=== PATIENT | male | born 2000 | race Caucasian/White ===

== ENCOUNTER 2025-01-31 20:40 | Emergency (ER) | payer OTHER, SELFPAY ==
--- NOTE | ~2025-01-31 | XR_ITS ---
CHEST RADIOGRAPH, PA AND LATERAL CLINICAL HISTORY: CP/SHOB . COMPARISON: None available TECHNIQUE: PA and lateral views of the chest. FINDINGS The cardiomediastinal silhouette is unremarkable. The lungs are clear. IMPRESSION: No focal infiltrate or effusion. Reviewed, dictated and finalized at location A.
--- NOTE | 2025-01-31 20:42 | ECG_ITS ---
Test Date: 2025-01-31 20:51:36 Measurements Intervals [place] Rate: 52 P: 38 MO: 111 QRS: 66 QRSD: 110 T: 61 QT: 417 QTc: 390 Interpretive Statements SINUS BRADYCARDIA WITH SHORT MO INTERVAL BASELINE ARTIFACT- I, II, III, AVR, AVL, AVF BORDERLINE ECG No previous ECG available for comparison Electronically Signed On 02-01-2025 06:14:20 CDT by Alfred Castanon D.O.
--- OUTSIDE RECORDS SUMMARY | 2025-01-31 20:42 | XMS_ITS ---
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 Name Role Phone Syed Mcclelland MD Primary Care Provider Unavailab Leona Maldonado Unavailable [phone] Son Handley Unavailable [phone] REASON FOR VISIT 1 month f/u Medications Medication SIG (Take, Route, Frequency, Duration) Notes Start Date End Date Status Citalopram Hydrobromide 10 MG 1 tablet Oral daily; Duration: 30 days 10/31/2024 Active Social History Sex Assigned At : Social History Observation Description Sex Assigned At Male Vital Signs Blood pressure systolic 108 mm Hg 11/17/19 25 Blood pressure diastolic 67 mm Hg 025 Heart Rate 54 /min 11/16/2024 Height 71 in 11/16/2024 Weight 139.8 lbs 11/16/2024 BMI 19.5 kg/m2 11/16/2024 Height-cm 180.34 cm 11/16/2024 Weight-kg 63.41 kg 11/16/2024 Encounters Encounter Location Date Provider Diagnosis [facility] [employer] [place] [address] [address] 11/16/2024 Son Handley Plan Of Treatment No Information Progress Notes * PHILLYGABRIELDOB:[birth year] (24 yo M)Acc No.[id number]:11/16/2024 Transfer of Care from [facility] Patient: GABRIEL TIRADO Provider: DINAH BHAGAT :2000 A ge:24 Y S ex:Male Date:11/16/2024 Phone: Address:[address] [place] [id number] Pcp:Syed Mcclelland MD Subjective: * Chief Complaints: * 1 . 1 month f/u. * HPI: D epression screening: PHQ-9 L ittle interest or pleasure in doing things?Several days F eeling down, depressed, or hopeless S ever T rouble falling or staying asleep, or sleeping too much S ever F eeling tired or having little energy S ever P oor appetite or overeating N ot at all F eeling bad about yourself or that you are a failure, or have let yourself or your family down S ever T rouble concentrating on things, such as reading the newspaper or watching television N ot at all M oving or speaking so slowly that other people could have noticed; or the opposite, being so fidgety or restless that you have been moving around a lot more than usual N ot at all T houghts that you would be better off or of hurting yourself in some way N ot at all I nterpretation M ild Depression D epression Screening: DAREN-7 (2018 Edition) F eeling nervous, anxious, or on edge S ever N ot being able to stop or control worrying?Several days W orrying too much about different things S ever T rouble relaxing S ever B eing so restless that it is hard to sit still N ot at all B ecoming easily annoyed or irritable S ever F eeling afraid as if something awful might happen S ever I f you checked any problems, how difficult have they made it for you to do your work, take care of things at home, or get along with other people? S omewhat difficult I nterpretation of Total ( 5 to 9) Mild * Medical History: * Medications: T jarrettg Citalopram Hydrobromide 10 MG Tablet 1 tablet Oral daily Objective: * Vitals: B P:108/67mm Hg, HR:54/min, Wt:139.8lbs, Wt-k.41 kg, Ht:71in, Ht-cm: 180.34 cm, BMI:19.5Index, Body Surface Area: 1.78. Assessment: Plan: * Treatment: * Billing Information: * Visit Code: * Procedure Codes: * Electronic signature of Oliver DINAH Rodriguez on 01/31/2025 at 07:05 PM CDT Sign off status: Pending * Provider: DINAH BHAGAT Date: 0 11/16/2024 Generated for Printi ng/Faxing/eTransmitting on: 0 01/31/2025 07:05 PM CDT History and Physical Notes * HPI (History of Present Illness) Category Sub-Category Detail Notes Category Not es Depression screening PHQ-9 Little inte rest or pleasure in doing things: Several days Feeling down, depressed, or hopeless: Se veral days Trouble falling or staying asleep, or sl eeping too much: Several days Feeling tired or having little energy: S everal days Poor appetite or overeating: Not at all Feeling bad about yourself o r that you are a failure, or have let yourself or your family down: Several days Trouble concentrating on thi ngs, such as reading the newspaper or watching television: Not at all Moving or speaking so slowly that other people could have noticed; or the opposite, being so fidgety or restless that you have been moving around a lot more than usual: Not at all Thoughts that you would be b rakesh off or of hurting yourself in some way: Not at all Interpretation: Mild Depression Depression Screening DAREN-7 (2018 Edition) Feelin g nervous, anxious, or on edge: Several days Not being able to stop or control worryi ng: Several days Worrying too much about different things : Several days Trouble relaxing: Several days Being so restless that it is hard to sit still: Not at all Becoming easily annoyed or irritable: Se veral days Feeling afraid as if something awful fady ht happen: Several days If you checked any problems, how difficult have they made it for you to do your work, take care of things at home, or get along with other people?: Somewhat difficult Interpretation of Total: (5 to 9) Mild
--- OUTSIDE RECORDS SUMMARY | 2025-01-31 20:42 | XMS_ITS | Patient Health Record ---
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 Name Role Phone Syed Mcclelland MD Primary Care Provider Unavailab Leona Maldonado Unavailable [phone] Son Handley Unavailable [phone] Justine Barnard Unavailable [phone] Vlad Gutierrez Unavailable [phone] Allergies Allergen (clinical drug ingredient) Drug/Non Drug Allergy documented on EMR Reaction Allergy Type Onset Date Status Cetirizine HCl Unknown Drug Allergy Ac tive montelukast Montelukast Sodium Unknown Drug Allergy Active Reason For Referral No Information Medications Medication SIG (Take, Route, Frequency, Duration) Notes Start Date End Date Status Citalopram Hydrobromide 10 MG 1 tablet Oral daily; Duration: 30 days 10/31/2024 Active Social History Tobacco Use: Social History Observation Description Date Details (start date - stop date) Never Smoker NA - NA Sex Assigned At : Social History Observation Description Sex Assigned At Male Tobacco Control (Standard) Question Answer Notes Tobacco use: Nonsmoker AUDIT-C (Standard) Question Answer Notes Did you have a drink contain ing alcohol in the past year? Yes How often did you have six o r more drinks on one occasion in the past year? Declined to specify (0 point) How many drinks did you have on a typical day when you were drinking in the past year? Declined to specify (0 point) How often did you have a dri nk containing alcohol in the past year? Never (0 point) Problems Problem Type SNOMED Code ICD Code Onset Dates Problem Status W/U Status Risk Notes Problem Severe recurrent major depression without psychotic features (04466382) Major depressive disorder, recurrent severe without psychotic features (F33.2) Active confirmed Problem Generalized anxiety disorder (74213351) Generalized anxiety disorder (F41.1) Active confirmed Problem Attention deficit hyperactivity disorder (041209919) Attention-deficit hyperactivity disorder, unspecified type (F90.9) Active confirmed Problem Depression Screening (100281934) Encounter for screening for depression (Z13.31) Active confirmed Problem Moderate recurrent major depression (39562501) MDD (major depressive disorder), recurrent episode, moderate (F33.1) Active confirmed Problem History of psychiatric disorder (565722707) History of ADHD (Z86.59) Active confirmed Vital Signs Heart Rate 49 /min 10/31/2024 Blood pressure diastolic 70 mm Hg 10/31/2024 Weight-kg 64.68 kg 10/31/2024 Blood pressure systolic 109 mm Hg 10/31/2024 Weight 142.6 lbs 10/31/2024 Encounters Encounter Location Date Provider Diagnosis [employer], [address] [place] [address] 06/11/2024 Justine Hinderliter Major depressive disorder, recurrent severe without psychotic features F33.2 ; Generalized anxiety disorder F41.1 and Attention-deficit hyperactivity disorder, unspecified type F90.9 [employer], [address] [place] [address] 06/26/2024 Justine Hinderliter Major depressive disorder, recurrent severe without psychotic features F33.2 ; Generalized anxiety disorder F41.1 and Attention-deficit hyperactivity disorder, unspecified type F90.9 [employer], [address] [place] [address] 07/03/2024 Justine Hinderliter Major depressive disorder, recurrent severe without psychotic features F33.2 ; Generalized anxiety disorder F41.1 and Attention-deficit hyperactivity disorder, unspecified type F90.9 [employer], [place] [address] [place] [address] 07/17/2024 Justine Hinderliter [employer], [address] [place] [address] 07/30/2024 Justine Hinderliter Major depressive disorder, recurrent severe without psychotic features F33.2 ; Generalized anxiety disorder F41.1 and Attention-deficit hyperactivity disorder, unspecified type F90.9 [employer], [place] [address] [facility] [address] [place] [address] 08/06/2024 Justine Barnard [facility], [address] [address] [place] [address] 10/31/2024 Vlad Clubb MDD (major depressiv e disorder), recurrent episode, moderate F33.1 ; History of ADHD Z86.59 ; Encounter for screening for depression Z13.31 and Encounter for screening for cardiovascular disorders Z13.6 [facility] [address] [facility] [address] [place] [address] 01/22/2025 Leona Harper [facility] [address] [address] 06/21/2024 Justine Barnard [facility] [address] [address] 07/23/2024 Justine Barnard [facility] [address] [facility] [address] [address] 10/25/2024 Justine Barnard Assessments Encounter Date Diagnosis (ICD Code) Assessment Notes Treatment Notes Treatment Clinical Notes Section Notes 06/11/2024 Major depressive disorder, recurrent severe without psychotic features (ICD-10 - F33.2) Marital Status: Single Living Arrangement: lives with mom Children: 0 Support System: Mom, off and on with sister Highest Level of Education: Some college 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 Suicidal Ideation/Self Harm: passive suicidal thoughts. Homicidal Ideation: Denied Access to means (firearms etc): yes, locked away in a gun safe. Chief Complaint: This past year has made me want to make therapy a life time thing. Anxiety: Paranoid thoughts, feeling on edge around children due to accusations. One panic attack in September, none since then. Depression: History of depression. Falling out with best friend, current smear campaign. Another friend in a car accident. Isolation, lost friends. Was drinking to cope. Anger: Denied ADHD: Diagnosed previously. Reports hyperfixations Psychosis: Denied Sleep: It's always been not great. Trouble falling asleep. Noted that he can lay in bed until 4am, sometimes all night. Will be laying in bed for multiple hours. Average of 6 hours of sleep. Does not feel well rested after. Appetite: I tend to under eat Does not feel it is related to current concerns, normal for him. Reports what he is eating is healthy. Trauma: Currently being harassed and slandered at school Substance Use (type, last use, amount, frequency, withdrawal symptoms): alcohol 3-4 drinks daily, currently none. Marijuana a couple times, never got anything from it. Gambling/Other Addictive Behaviors: Noted some addiction to porn. ADLs (Hygiene, Chores, Cooking, Shopping): Reported low motivation for anything. Hygiene hasn't been bad but lower than his normal. 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 Adjustment Disorder with Mixed Anxiety and Depressed Mood - The patient has reported significant stress, anxiety, and depression due to a series of distressing events. - Plan: Begin weekly Cognitive Behavioral Therapy (CBT) sessions to tackle stress, anxiety, and depression. Emphasize the development of coping skills, emotional regulation, and cognitive restructuring techniques. 2. Sleep Disturbance - The patient experiences difficulty with sleep initiation, maintenance, and feels unrested. - Plan: Evaluate sleep hygiene and introduce strategies aimed at enhancing sleep quality, including relaxation techniques and a consistent sleep schedule. 3. Social Isolation and Lack of Support System - The patient feels isolated due to loss of friends and support amidst school-related issues and is contemplating a school transfer. - Plan: Investigate avenues for cultivating healthier social supports and connections. Discuss the advantages and disadvantages of transferring schools and its potential effects on mental health. 4. ADHD - The patient has been diagnosed with ADHD. - Plan: Observe how ADHD affects the patient's daily life and mental health. Consider discussing medication management options with a psychiatrist if deemed necessary. 5. Substance Use - The patient has a history of using alcohol to cope with stress and occasional marijuana use, though has ceased such use. - Plan: Keep an eye on substance use patterns and offer psychoeducation about the effects of substances on mental health. Promote the adoption of healthier coping mechanisms. 6. Poor Hygiene and Motivation - The patient has noted a recent improvement in motivation and hygiene, despite an overall decline. - Plan: Incorporate motivation and hygiene improvement strategies into the treatment plan, focusing on goal-setting, establishing daily routines, and enhancing self-care practices. 7. Grief and Loss - The patient is grieving the loss of a close friend in a car accident. - Plan: Offer grief counseling and support to assist the patient in processing and coping with the loss. 8. Mild Issues with Appetite and Eating Habits - The patient occasionally under-eats but perceives it as normal behavior. - Plan: Keep track of eating patterns and discuss the significance of proper nutrition for mental and physical well-being. Encourage the establishment of a regular eating schedule. 9. Concerns with Pornography Use - The patient views pornography use as a potential addictive behavior. - Plan: Evaluate the effects of pornography use on the patient's daily life and interpersonal relationships. Provide psychoeducation on maintaining healthy sexual behaviors and strategies for managing urges. 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 Suicidal Ideation/Self Harm: passive suicidal thoughts. Homicidal Ideation: Denied Access to means (firearms etc): yes, locked away in a gun safe. Chief Complaint: This past year has made me want to make therapy a life time thing. Anxiety: Paranoid thoughts, feeling on edge around children due to accusations. One panic attack in September, none since then. Depression: History of depression. Falling out with best friend, current smear campaign. Another friend in a car accident. Isolation, lost friends. Was drinking to cope. Anger: Denied ADHD: Diagnosed previously. Reports hyperfixations Psychosis: Denied Sleep: It's always been not great. Trouble falling asleep. Noted that he can lay in bed until 4am, sometimes all night. Will be laying in bed for multiple hours. Average of 6 hours of sleep. Does not feel well rested after. Appetite: I tend to under eat Does not feel it is related to current concerns, normal for him. Reports what he is eating is healthy. Trauma: Currently being harassed and slandered at school Substance Use (type, last use, amount, frequency, withdrawal symptoms): alcohol 3-4 drinks daily, currently none. Marijuana a couple times, never got anything from it. Gambling/Other Addictive Behaviors: Noted some addiction to porn. ADLs (Hygiene, Chores, Cooking, Shopping): Reported low motivation for anything. Hygiene hasn't been bad but lower than his normal. 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 Adjustment Disorder with Mixed Anxiety and Depressed Mood - The patient has reported significant stress, anxiety, and depression due to a series of distressing events. - Plan: Begin weekly Cognitive Behavioral Therapy (CBT) sessions to tackle stress, anxiety, and depression. Emphasize the development of coping skills, emotional regulation, and cognitive restructuring techniques. 2. Sleep Disturbance - The patient experiences difficulty with sleep initiation, maintenance, and feels unrested. - Plan: Evaluate sleep hygiene and introduce strategies aimed at enhancing sleep quality, including relaxation techniques and a consistent sleep schedule. 3. Social Isolation and Lack of Support System - The patient feels isolated due to loss of friends and support amidst school-related issues and is contemplating a school transfer. - Plan: Investigate avenues for cultivating healthier social supports and connections. Discuss the advantages and disadvantages of transferring schools and its potential effects on mental health. 4. ADHD - The patient has been diagnosed with ADHD. - Plan: Observe how ADHD affects the patient's daily life and mental health. Consider discussing medication management options with a psychiatrist if deemed necessary. 5. Substance Use - The patient has a history of using alcohol to cope with stress and occasional marijuana use, though has ceased such use. - Plan: Keep an eye on substance use patterns and offer psychoeducation about the effects of substances on mental health. Promote the adoption of healthier coping mechanisms. 6. Poor Hygiene and Motivation - The patient has noted a recent improvement in motivation and hygiene, despite an overall decline. - Plan: Incorporate motivation and hygiene improvement strategies into the treatment plan, focusing on goal-setting, establishing daily routines, and enhancing self-care practices. 7. Grief and Loss - The patient is grieving the loss of a close friend in a car accident. - Plan: Offer grief counseling and support to assist the patient in processing and coping with the loss. 8. Mild Issues with Appetite and Eating Habits - The patient occasionally under-eats but perceives it as normal behavior. - Plan: Keep track of eating patterns and discuss the significance of proper nutrition for mental and physical well-being. Encourage the establishment of a regular eating schedule. 9. Concerns with Pornography Use - The patient views pornography use as a potential addictive behavior. - Plan: Evaluate the effects of pornography use on the patient's daily life and interpersonal relationships. Provide psychoeducation on maintaining healthy sexual behaviors and strategies for managing urges. 06/26/2024 Major depressive disorder, recurrent severe without psychotic features (ICD-10 - F33.2) 1. Family Conflict and Tension with Father - Continue setting boundaries and seeking space from the father as needed to alleviate ongoing tension and conflict, which impacts mental well-being. - Explore coping strategies for managing family conflict, including journaling, mindfulness exercises, and seeking support from friends or other family members. - Consider the potential benefits of family therapy to address the conflict with the father. 2. Strained Relationship with Siblings - Encourage maintaining open communication with siblings and seeking opportunities to strengthen these relationships. - Provide support and guidance in navigating difficult conversations with siblings, especially considering the weakened relationship and similarities to the father's traits. 3. School-related Stress and Decision-making - Support the patient in researching and exploring options for transferring schools, considering the conflict with the father over educational decisions. - Assist in developing a plan for discussing educational decisions with the father, emphasizing clear communication and boundary setting. - Recommend seeking academic advising or career counseling services to aid in decision-making and planning. 4. Coping with Stress and Anxiety - Teach stress management techniques, such as deep breathing exercises, progressive muscle relaxation, and mindfulness meditation, to focus on personal well-being. - Encourage engagement in self-care activities and prioritization of mental health. - Provide a list of support groups as a resource for connecting with individuals facing similar challenges. Follow-up: - Schedule a follow-up appointment for one week from the current date to monitor progress and continue addressing the identified issues. 06/26/2024 Generalized anxiety disorder (ICD-10 - F41.1) 1. Family Conflict and Tension with Father - Continue setting boundaries and seeking space from the father as needed to alleviate ongoing tension and conflict, which impacts mental well-being. - Explore coping strategies for managing family conflict, including journaling, mindfulness exercises, and seeking support from friends or other family members. - Consider the potential benefits of family therapy to address the conflict with the father. 2. Strained Relationship with Siblings - Encourage maintaining open communication with siblings and seeking opportunities to strengthen these relationships. - Provide support and guidance in navigating difficult conversations with siblings, especially considering the weakened relationship and similarities to the father's traits. 3. School-related Stress and Decision-making - Support the patient in researching and exploring options for transferring schools, considering the conflict with the father over educational decisions. - Assist in developing a plan for discussing educational decisions with the father, emphasizing clear communication and boundary setting. - Recommend seeking academic advising or career counseling services to aid in decision-making and planning. 4. Coping with Stress and Anxiety - Teach stress management techniques, such as deep breathing exercises, progressive muscle relaxation, and mindfulness meditation, to focus on personal well-being. - Encourage engagement in self-care activities and prioritization of mental health. - Provide a list of support groups as a resource for connecting with individuals facing similar challenges. Follow-up: - Schedule a follow-up appointment for one week from the current date to monitor progress and continue addressing the identified issues. 07/30/2024 Major depressive disorder, recurrent severe without psychotic features (ICD-10 - F33.2) Assessment and Plan: Family Conflict and Communication Issues with Father Continue exploring and processing the patient's feelings and experiences related to their father's behavior and communication patterns. Develop strategies for effective communication with the father, focusing on setting boundaries and expressing needs assertively. Encourage the patient to seek support from other family members, such as their mother, to validate their feelings and experiences. History of Trauma and Coping with Past Experiences Continue processing the patient's past experiences at school and their impact on his mental health. Reinforce the patient's progress in recognizing and overcoming trauma responses. Encourage the patient to focus on his own needs and goals, such as attending the [facility], rather than seeking validation from their father. Emotional Regulation and Self-Esteem Work on building the patient's self-esteem and resilience in the face of their father's criticism and negative behavior. Develop coping strategies for managing emotions, particularly anger and frustration, in response to their father's actions. Encourage the patient to practice self-compassion and self-care, focusing on his own well-being and personal growth. Scheduling and Follow-up Schedule a follow-up appointment for August 06, in the afternoon via telehealth. Continue to monitor the patient's progress and adjust the treatment plan as needed. 07/30/2024 Generalized anxiety disorder (ICD-10 - F41.1) Assessment and Plan: Family Conflict and Communication Issues with Father Continue exploring and processing the patient's feelings and experiences related to their father's behavior and communication patterns. Develop strategies for effective communication with the father, focusing on setting boundaries and expressing needs assertively. Encourage the patient to seek support from other family members, such as their mother, to validate their feelings and experiences. History of Trauma and Coping with Past Experiences Continue processing the patient's past experiences at school and their impact on his mental health. Reinforce the patient's progress in recognizing and overcoming trauma responses. Encourage the patient to focus on his own needs and goals, such as attending the [facility], rather than seeking validation from their father. Emotional Regulation and Self-Esteem Work on building the patient's self-esteem and resilience in the face of their father's criticism and negative behavior. Develop coping strategies for managing emotions, particularly anger and frustration, in response to their father's actions. Encourage the patient to practice self-compassion and self-care, focusing on his own well-being and personal growth. Scheduling and Follow-up Schedule a follow-up appointment for August 06, in the afternoon via telehealth. Continue to monitor the patient's progress and adjust the treatment plan as needed. 07/03/2024 Major depressive disorder, recurrent severe without psychotic features (ICD-10 - F33.2) 1. Sleep Schedule Improvement - Continue efforts to maintain and enhance the sleep schedule to bolster overall well-being. 2. Exercise and Physical Activity - Gradually reintroduce indoor exercises such as push-ups, sit-ups, and cross-country exercises. - Establish exercise goals for specific days and durations. - Plan to resume running as weather conditions allow. 3. Screen Time and Social Media Reduction - Implement limits on social media use, including andres deletions if necessary. - Allocate 1-2 hours for reading in the afternoon, around 2-3 PM, using timers to manage this activity. 4. Employment - Persist in the job search with the objective of securing employment by the the . - Explore opportunities at the [employer] or other local establishments. 5. Emotional Well-being and Paranoia - Maintain distance from the situation at [facility], concentrating on personal development. - Focus on establishing new, trustworthy relationships, paying attention to positive indicators in individuals. 6. Support System - Make use of the provided list of local support groups. - Participate in hobbies and activities that facilitate meeting new people and creating a support network. 7. Creativity and Personal Fulfillment - Allocate time for creative activities, such as engaging in music and film. - Acknowledge the beneficial effects of creativity on mental and emotional health. 8. Future Appointments - Arrange a follow-up consultation for two weeks, on the , choosing between in-person or telehealth based on preference and availability. The patient is encouraged to persist in focusing on self-care, personal advancement, and cultivating a support network. It is important for the patient to maintain transparent communication with the therapist and to report any concerns or issues prior to the next scheduled meeting. 07/03/2024 Generalized anxiety disorder (ICD-10 - F41.1) 1. Sleep Schedule Improvement - Continue efforts to maintain and enhance the sleep schedule to bolster overall well-being. 2. Exercise and Physical Activity - Gradually reintroduce indoor exercises such as push-ups, sit-ups, and cross-country exercises. - Establish exercise goals for specific days and durations. - Plan to resume running as weather conditions allow. 3. Screen Time and Social Media Reduction - Implement limits on social media use, including andres deletions if necessary. - Allocate 1-2 hours for reading in the afternoon, around 2-3 PM, using timers to manage this activity. 4. Employment - Persist in the job search with the objective of securing employment by the the . - Explore opportunities at the [employer] or other local establishments. 5. Emotional Well-being and Paranoia - Maintain distance from the situation at [facility], concentrating on personal development. - Focus on establishing new, trustworthy relationships, paying attention to positive indicators in individuals. 6. Support System - Make use of the provided list of local support groups. - Participate in hobbies and activities that facilitate meeting new people and creating a support network. 7. Creativity and Personal Fulfillment - Allocate time for creative activities, such as engaging in music and film. - Acknowledge the beneficial effects of creativity on mental and emotional health. 8. Future Appointments - Arrange a follow-up consultation for two weeks, on the , choosing between in-person or telehealth based on preference and availability. The patient is encouraged to persist in focusing on self-care, personal advancement, and cultivating a support network. It is important for the patient to maintain transparent communication with the therapist and to report any concerns or issues prior to the next scheduled meeting. 10/31/2024 MDD (major depressive disorder), recurrent episode, moderate (ICD-10 - F33.1) 10/31/2024 History of ADHD (ICD-10 - Z86.59) 07/03/2024 Attention-deficit hyperactivity disorder, unspecified type (ICD-10 - F90.9) 1. Sleep Schedule Improvement - Continue efforts to maintain and enhance the sleep schedule to bolster overall well-being. 2. Exercise and Physical Activity - Gradually reintroduce indoor exercises such as push-ups, sit-ups, and cross-country exercises. - Establish exercise goals for specific days and durations. - Plan to resume running as weather conditions allow. 3. Screen Time and Social Media Reduction - Implement limits on social media use, including andres deletions if necessary. - Allocate 1-2 hours for reading in the afternoon, around 2-3 PM, using timers to manage this activity. 4. Employment - Persist in the job search with the objective of securing employment by the of the . - Explore opportunities at the [employer] or other local establishments. 5. Emotional Well-being and Paranoia - Maintain distance from the situation at [facility], concentrating on personal development. - Focus on establishing new, trustworthy relationships, paying attention to positive indicators in individuals. 6. Support System - Make use of the provided list of local support groups. - Participate in hobbies and activities that facilitate meeting new people and creating a support network. 7. Creativity and Personal Fulfillment - Allocate time for creative activities, such as engaging in music and film. - Acknowledge the beneficial effects of creativity on mental and emotional health. 8. Future Appointments - Arrange a follow-up consultation for two weeks, on the , choosing between in-person or telehealth based on preference and availability. The patient is encouraged to persist in focusing on self-care, personal advancement, and cultivating a support network. It is important for the patient to maintain transparent communication with the therapist and to report any concerns or issues prior to the next scheduled meeting. 10/31/2024 Encounter for screening for depression (ICD-10 - Z13.31) 07/30/2024 Attention-deficit hyperactivity disorder, unspecified type (ICD-10 - F90.9) Assessment and Plan: Family Conflict and Communication Issues with Father Continue exploring and processing the patient's feelings and experiences related to their father's behavior and communication patterns. Develop strategies for effective communication with the father, focusing on setting boundaries and expressing needs assertively. Encourage the patient to seek support from other family members, such as their mother, to validate their feelings and experiences. History of Trauma and Coping with Past Experiences Continue processing the patient's past experiences at school and their impact on his mental health. Reinforce the patient's progress in recognizing and overcoming trauma responses. Encourage the patient to focus on his own needs and goals, such as attending the [facility], rather than seeking validation from their father. Emotional Regulation and Self-Esteem Work on building the patient's self-esteem and resilience in the face of their father's criticism and negative behavior. Develop coping strategies for managing emotions, particularly anger and frustration, in response to their father's actions. Encourage the patient to practice self-compassion and self-care, focusing on his own well-being and personal growth. Scheduling and Follow-up Schedule a follow-up appointment for August 06, in the afternoon via telehealth. Continue to monitor the patient's progress and adjust the treatment plan as needed. 06/26/2024 Attention-deficit hyperactivity disorder, unspecified type (ICD-10 - F90.9) 1. Family Conflict and Tension with Father - Continue setting boundaries and seeking space from the father as needed to alleviate ongoing tension and conflict, which impacts mental well-being. - Explore coping strategies for managing family conflict, including journaling, mindfulness exercises, and seeking support from friends or other family members. - Consider the potential benefits of family therapy to address the conflict with the father. 2. Strained Relationship with Siblings - Encourage maintaining open communication with siblings and seeking opportunities to strengthen these relationships. - Provide support and guidance in navigating difficult conversations with siblings, especially considering the weakened relationship and similarities to the father's traits. 3. School-related Stress and Decision-making - Support the patient in researching and exploring options for transferring schools, considering the conflict with the father over educational decisions. - Assist in developing a plan for discussing educational decisions with the father, emphasizing clear communication and boundary setting. - Recommend seeking academic advising or career counseling services to aid in decision-making and planning. 4. Coping with Stress and Anxiety - Teach stress management techniques, such as deep breathing exercises, progressive muscle relaxation, and mindfulness meditation, to focus on personal well-being. - Encourage engagement in self-care activities and prioritization of mental health. - Provide a list of support groups as a resource for connecting with individuals facing similar challenges. Follow-up: - Schedule a follow-up appointment for one week from the current date to monitor progress and continue addressing the identified issues. 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 Suicidal Ideation/Self Harm: passive suicidal thoughts. Homicidal Ideation: Denied Access to means (firearms etc): yes, locked away in a gun safe. Chief Complaint: This past year has made me want to make therapy a life time thing. Anxiety: Paranoid thoughts, feeling on edge around children due to accusations. One panic attack in September, none since then. Depression: History of depression. Falling out with best friend, current [employer] campaign. Another friend in a car accident. Isolation, lost friends. Was drinking to cope. Anger: Denied ADHD: Diagnosed previously. Reports hyperfixations Psychosis: Denied Sleep: It's always been not great. Trouble falling asleep. Noted that he can lay in bed until 4am, sometimes all night. Will be laying in bed for multiple hours. Average of 6 hours of sleep. Does not feel well rested after. Appetite: I tend to under eat Does not feel it is related to current concerns, normal for him. Reports what he is eating is healthy. Trauma: Currently being harassed and slandered at school Substance Use (type, last use, amount, frequency, withdrawal symptoms): alcohol 3-4 drinks daily, currently none. Marijuana a couple times, never got anything from it. Gambling/Other Addictive Behaviors: Noted some addiction to porn. ADLs (Hygiene, Chores, Cooking, Shopping): Reported low motivation for anything. Hygiene hasn't been bad but lower than his normal. 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 Adjustment Disorder with Mixed Anxiety and Depressed Mood - The patient has reported significant stress, anxiety, and depression due to a series of distressing events. - Plan: Begin weekly Cognitive Behavioral Therapy (CBT) sessions to tackle stress, anxiety, and depression. Emphasize the development of coping skills, emotional regulation, and cognitive restructuring techniques. 2. Sleep Disturbance - The patient experiences difficulty with sleep initiation, maintenance, and feels unrested. - Plan: Evaluate sleep hygiene and introduce strategies aimed at enhancing sleep quality, including relaxation techniques and a consistent sleep schedule. 3. Social Isolation and Lack of Support System - The patient feels isolated due to loss of friends and support amidst school-related issues and is contemplating a school transfer. - Plan: Investigate avenues for cultivating healthier social supports and connections. Discuss the advantages and disadvantages of transferring schools and its potential effects on mental health. 4. ADHD - The patient has been diagnosed with ADHD. - Plan: Observe how ADHD affects the patient's daily life and mental health. Consider discussing medication management options with a psychiatrist if deemed necessary. 5. Substance Use - The patient has a history of using alcohol to cope with stress and occasional marijuana use, though has ceased such use. - Plan: Keep an eye on substance use patterns and offer psychoeducation about the effects of substances on mental health. Promote the adoption of healthier coping mechanisms. 6. Poor Hygiene and Motivation - The patient has noted a recent improvement in motivation and hygiene, despite an overall decline. - Plan: Incorporate motivation and hygiene improvement strategies into the treatment plan, focusing on goal-setting, establishing daily routines, and enhancing self-care practices. 7. Grief and Loss - The patient is grieving the loss of a close friend in a car accident. - Plan: Offer grief counseling and support to assist the patient in processing and coping with the loss. 8. Mild Issues with Appetite and Eating Habits - The patient occasionally under-eats but perceives it as normal behavior. - Plan: Keep track of eating patterns and discuss the significance of proper nutrition for mental and physical well-being. Encourage the establishment of a regular eating schedule. 9. Concerns with Pornography Use - The patient views pornography use as a potential addictive behavior. - Plan: Evaluate the effects of pornography use on the patient's daily life and interpersonal relationships. Provide psychoeducation on maintaining healthy sexual behaviors and strategies for managing urges. 10/31/2024 Encounter for screening for cardiovascular disorders (ICD-10 - Z13.6) 10/31/2024 Other Learning About Depression Screening material was printed Attention Deficit Hyperactivity Disorder (ADHD) Assessment: Patient reports a longstanding history of ADHD symptoms since age 16, including difficulty giving close attention to details, making careless mistakes, organizing tasks or activities, and being easily distracted by external stimuli. These symptoms have been affecting daily functioning, particularly in social interactions and task accomplishment. Patient was previously prescribed Concerta at age 16 but discontinued after a couple of months due to disliking the effects. Patient is now interested in restarting medication for ADHD as they prepare to attend college. Given the patient's history and current symptomatology, a reassessment of ADHD is warranted to confirm the diagnosis and guide treatment decisions. Plan: - Schedule ADHD testing to reassess and confirm diagnosis - Discuss non-stimulant medication options for ADHD, including atomoxetine (Strattera) and bupropion (Wellbutrin), pending ADHD test results - Patient is not interested in non-stimulant option. - send to [facility]IN[facility] MCF[facility] on 11/16/24 r/t [facility] walk-in clinic policy on controlled substances. Anxiety/depress ion Assessment: Patient reports current anxiety levels at 11/03. Associated symptoms include decreased concentration, decreased energy, difficulty falling and staying asleep, feelings of worthlessness, and isolative behavior. Sleep issues reportedly began last year. Patient has a history of taking citalopram for anxiety two years ago. Given the constellation of symptoms and upcoming life changes (attending college in another state) Plan: - Prescribe citalopram (Celexa) 10 mg daily for anxiety management - Educate patient on potential side effects. send to [facility] MCF[facility] on 11/16/24 Sleep Disturbance Assessment: Patient reports difficulty falling asleep and staying asleep, with onset approximately one year ago. This may be related to anxiety symptoms and excessive caffeine intake. Further evaluation of sleep hygiene and caffeine consumption is warranted. Plan: - Advise on sleep hygiene practices - Recommend reduction of caffeine intake, especially in the afternoon and evening - Monitor sleep patterns in conjunction with anxiety treatment The note is transcribed using speech recognition software. It is a reflection of a visit with the patient. It might have some inaccuracy, including medication names and transcribing errors, though efforts have been made to correct them. Plan Of Treatment No Information Insurance Providers Payer Name Payer Address Payer Phone Subscriber Number Group Number Insured Name Patient Relationship to Insured Coverage Start Date Coverage End Date [facility] [address] [address] [place] [address] [id number] GABRIEL FRAGA Self - patient is the insured [facility] [address] [address] [place] [address] [id number] GABRIEL FRAGA Self - patient is the insured Medical (General) History Medical History History ICD Code Attention deficit disorder (ADD) without hyperactivity 2017 astigmatism irritable bowel syndrome [place] spotted fever 02/18/2017 Meningitis 01/28/2017 Asthma 07/13/2016 History as a kid, but grew out of it. Chronic idiopathic constipation Hospitalization History Reason Date(Month/Year) [place] spotted fever 02/18/2017 Meningitis 01/28/2017
--- OUTSIDE RECORDS SUMMARY | 2025-01-31 20:42 | XMS_ITS | Clinical Summary ---
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 Sewer Separation Designer Name Role Phone Syed Mcclelland MD Primary Care Provider [phone] Allergies Active Allergy Reactions Criticality Noted Date Comments Cetirizine Hcl Other (see Comments),Unknown 11/19/2009 Nightmares Nightmares Montelukast Other (see Comments) 11/19/2009 Nightmares Medications No known medications Immunizations Immunization Administration Dates Next Due DTAP VACCINE 07/12/2007, 4,01/16/2003,12/05,2002 Hepatitis B Vaccine, Pediatric/adolescent 02/06/2003,2002,2002 Hib (HbOC) 02/12/2004,200 4,2002,10/10 Hib (PRP-OMP) Vaccine 02/12/2004, 004,2002,10/10 Human Papillomavirus (HPV) 9 -valent Vaccine 01/14/2020,11/14/2018 Inactivated Polio Vaccine 07/12/2007,,2002,10/24 Influenza Vaccine 04/05/2016,06/22/2013 Influenza Vaccine, Quadrivalent, PF 05/13/2021,1 ,04/09/2019 Influenza, Injectable, Quadrivalent 04/05/2016 Influenza, Trivalent, Adjuvanted, PF 04/16/2015, 05/16/2014,07/05/2012 MMR Vaccine 07/12/2007,08/21/2003 Meningococcal MCV4O 11/14/2018 Meningococcal Polysaccharide Vaccine (MPSV4) 11/22/2013 Pneumococcal Vaccine Peds 01/09/2003,2002, 2002 TDAP Vaccine 11/22/2013 Varicella Vaccine Live 09/10/2009,10/16/2003 Family History Medical History Relation Name Comments No Known Problems Brother 1 No Known Problems Brother 2 Cancer Father Heart Disease Father has pace maker No Known Problems Mother No Known Problems Sister Relation Name Status Comments Brother 1 Alive Brother 2 Alive Father Alive Mother Alive Sister Alive Social History Tobacco Use Types Packs/Day Years Used Date Smoking Tobacco: Never Smokeless Tobacco: Never Alcohol Use Standard Drinks/Week Comments Never 0 (1 standard drink = 0.6 oz pur e alcohol) PHQ-2 Answer Date Recorded Total Score - Questions 1-9 19 03/27 Sexually Active Control Partners Comments Not Currently Sex and Gender Information Value Date Recorded Sex Assigned at Not on file Legal Sex Male 12:42 AM CDT Gender Identity Not on file Sexual Orientation Not on file Last Filed Vital Signs Vital Sign Reading Time Taken Comments Blood Pressure 120/66 05/13/2021 10:29 AM 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 PHYSICIST Pulse 64 05/13/2021 10:29 AM RADIATION 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 PHYSICIST Temperature 36.8 C (98.2 F) 05/13/2021 10:29 AM RADIATION 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 PHYSICIST Respiratory Rate 16 05/13/2021 10:29 AM RADIATION 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 PHYSICIST Oxygen Saturation 98% 05/13/2021 10:29 AM RADIATION 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 PHYSICIST Inhaled Oxygen Concentration - - Weight 70.8 kg (156 lb) 05/13/2021 10:29 AM RADIATION 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 PHYSICIST Height 180.3 cm (5' 11) 05/13/2021 10:29 AM RADIATION 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 PHYSICIST Body Mass Index 21.76 05/13/2021 10:29 AM RADIATION 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 PHYSICIST Plan of Treatment Health Maintenance Due Date Last Done Comments Hepatitis C Virus (HCV) Screening 2002 Meningococcal B Immunization (1 of 2 - Standard) 2018 Human Papillomavirus (HPV) Immunization (3 - Male 3-dose series) 04/07/2020 01/14/2020, 11/14/2018 DTaP/Tdap/Td Immunization (7 - Td or Tdap) 11/23/2023 11/22/2013, 07/12/2007, 11/06/2003, Additional history exists SARS-COV-2 Immunization (2 - season) 2024 01/29/2021 Influenza Immunization (#1) 02/25/202504/27, 04/07/2020, 04/09/2019, Additional history exists Respiratory Syncytial Virus (RSV) Immunization (Adult) (1 - 1-dose 75+ series) 2077 Pneumococcal Immunization Combined Aged Out 01/09/2003, 2002, 2002 No longer eligible based on patient's age to complete this topic Hepatitis B Immunization Completed 003, 2002, 2002 Measles Mumps Rubella (MMR) Immunization Discontinued 07/12/2007, 08/21/2003 Polio (IPV) Immunization Discontinued 008, 07/17/2004, 2002, Additional history exists Varicella Immunization Discontinued 09/10/2009, 2003 Meningococcal Immunization (ACWY) Completed 11/14/2018, 11/22/2013 Rotavirus Immunization Aged Out No lo nger eligible based on patient's age to complete this topic Insurance [facility] Care Teams Sewer Separation Designer Relationship Specialty Start Date End Date Syed Mcclelland MD [employer], [address] [place] [address] PCP - General Infectious Disease 03/08/22
--- OUTSIDE RECORDS SUMMARY | 2025-01-31 20:43 | XMS_ITS | Clinical Summary ---
Author Organization [facility] Address [address] [place] [address] Care Team Providers Care Resume Specialist Name Role Phone Lindsey Foreman DO Unavailable [phone] Syed Mcclelland MD Primary Care Provider [phone] Allergies Active Allergy Reactions Criticality Noted Date Comments Cetirizine Hcl Other (See comments) Low 11/19/2009 Nightmares Montelukast Other (See comments) Low 11/19/2009 Nightmares Montelukast Sodium Unknown 11/01/2024 Medications linaCLOtide (LINZESS) 72 mcg capsuleIndicatio ns:chronic idiopathic constipation Take 1 capsule (72 mcg total) by mouth daily 90 capsule 1 03/10/20 23 Active Additional Information Patient not taking.Reported on 01/31/2025 citalopram (CeleXA) 10 mg tabletIndication s:Mood disorder Take 1 tablet (10 mg total) by mouth daily 30 tablet 5 01/17/20 24 Active Additional Information Patient not taking.Reported on 01/31/2025 dicyclomine (BENTYL) 10 mg capsule Take 1 capsule (10 mg total) by mouth 3 (three) times a day as needed 08/02/19 23 023 Discontin ued(Expir ed) Active Problems Problem Noted Date Diagnosed Date Generalized anxiety disorder 11/01/2024 MDD (major depressive disord er), recurrent episode, moderate 11/01/2024 Severe recurrent major depre ssion without psychotic features 11/01/2024 Dental abscess 11/09/2022 Assessment & Plan (11/09/2022 12:01 PM CDT): Symptoms started last night/this morning. Abscess behind lower R molar as noted above, no current drainage or jaw swelling/pain. Will rx Augmentin as directed. Warm salt water gargles may help also. Tylenol/Ibuprofen as needed for pain. Call if symptoms do not resolve with antibiotic. Make appt with dentist [facility]. Chronic idiopathic constipation 07/12/2022 Assessment & Plan (11/20/2022 9:08 AM CDT): His younger brother was recently diagnosed with Crohn's disease. The patient himself has a history of chronic constipation going back to his youth or even childhood. More recently, symptoms have bothered him more. He has a bowel movement every 2-3 days or sometimes up to almost one week. Stools are hard and dry. He had a GI evaluation near his [employer] in [place] including a colonoscopy that was negative for major pathology. There was nonspecific chronic inflammation on terminal ileum and colon biopsies. He was given anti spasmodic medications (dicyclomine and hyoscyamine) which did not help. He was given Amitiza which initially seemed to help, but is no longer working. We discussed that a high fiber diet and adequate hydration will probably help. We sent in a starting dose of Linzess which he prefers to try over a higher dose of Amitiza, risks of medication discussed. He will arrange to see Dr. Ramirez for another opinion. Follow-up in one month, or sooner if needed. Assessment & Plan (08/17/2022 6:14 AM IRONER): He has a long history of constipation dating to childhood, but it seems to be getting worse. He only moves his bowels every 3-4 days. The stools are small in volume, hard and difficult to pass. There is no blood in the stool. He reports that his 16-year-old younger brother was recently diagnosed with ulcerative colitis. The patient does not currently have any symptoms consistent with severe ulcerative colitis such as bloody stools. Recent labs and CT of the abdomen are unremarkable. He was using milk of magnesia pretty regularly to keep his bowels moving. When evaluated in our office on July 07, he was advised to discontinue the milk of magnesia and use a fiber supplement instead. We reinforced this recommendation. Assessment & Plan (07/13/2022 10:44 AM IRONER): Chronic problem, Worse over the last several weeks. Taking Miralax and MOM with mild relief. No acute findings on exam. Will order CT abdomen to r/o obstruction, mass, tumor, inflammatory conditions, infection. Will check CMP, CBC, amylase, lipase, TSH, ESR,and CRP. Instructed to stop MOM, use Miralax and colace as directed. Discussed soluble VS insoluable sources of fiber-avoid nuts, beans, broccoli, cauliflower, green beans, potatoes, and bran. Ok to use Metamucil. Stay hydrated. Educated on natural laxatives such as prunes, apple juice, smooth move tea, coffee, and probiotics. Follow after CT. Abdominal bloating 07/12/2022 Overview (11/03/2022): Not so much pain as bloating. FODMAP diet restrictions suggested. Assessment & Plan (11/04/2022 2:43 PM CDT): He is distressed by his bloating symptoms. It is not really a pain but a discomfort or pressure. He tried eliminating gluten and dairy which did not help. We suggested a FODMAP elimination diet. We we will see him back in about one month. Assessment & Plan (07/30/2022 4:57 PM IRONER): He says pain is not a major problem, it is mostly the bloating and gas and constipation that bother him. Symptoms are longstanding, present since childhood, but he feels they are getting worse. Previous workup and intervention includes possible alpha gal from a tick bite, and a gluten elimination diet at age 12 which seemed to help his symptoms. He is more worried about current symptoms now because his younger brother was diagnosed with ulcerative colitis at age 16. We will arrange for evaluation by a GI specialist near his [place] in [place]. In the meantime, I suggested various remedies discussed elsewhere, as well as a FODMAP and/or gluten elimination diet. Assessment & Plan (07/13/2022 10:46 AM IRONER): intermittent problem, Worse over the last several weeks with associated bloating and constipation. Taking Miralax and MOM with mild relief. No acute findings on exam. Will order CT abdomen to r/o obstruction, mass, tumor, inflammatory conditions, infection. Will check CMP, CBC, amylase, lipase, TSH, ESR,and CRP. Instructed to stop MOM, use Miralax and colace as directed. Discussed soluble VS insoluable sources of fiber-avoid nuts, beans, broccoli, cauliflower, green beans, potatoes, and bran. Ok to use Metamucil. Stay hydrated. Educated on natural laxatives such as prunes, apple juice, smooth move tea, coffee, and probiotics. Follow after CT. Other fatigue 11/25/2020 Overview (05/15/2021): After getting Pfizer vaccine, noted increased fatigue and chest pain. Assessment & Plan (08/17/2021 12:53 PM IRONER): He had a lot of fatigue after the first dose of COVID vaccine, but says he is doing much better with respect energy level. He is thinking about getting the second dose of COVID vaccine, but not right now. Assessment & Plan (05/15/2021 12:49 PM IRONER): He complains of having low energy and lacking in motivation. Symptoms seemed to get worse after he got the first dose of the Pfizer SARS-CoV-2 vaccine on January 29. He also wonders about Lyme disease. 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 It was removed with tweezers and hydrogen peroxide. Subsequently he had a lot of fatigue. There is no history of fever. It is a little unclear to me if he ever had a rash. He gets lots of headaches, but this is a chronic symptom present for years. He takes ibuprofen for various aches and pains including his headaches. Labs in urgent care on 03/07/2021 including CBC, CMP, CRP, and Lyme antibody were unremarkable. At this point, we are deferring any additional evaluation, but we will see him back in three months or so to reassess. Chest pain 08/23/2018 Overview (05/15/2021): Had echo 2019; child and Dad do not recall the details of this. Jan 2021 had several minutes dull left lower chest pain at rest that radiated into his left arm. Went to ER: EKG normal. Then a few weeks later had dull chest pain in same location with running; would go away when he stopped. Seemed to get worse after getting first dose of Pfizer vaccine. Assessment & Plan (08/17/2021 12:56 PM IRONER): He has had intermittent chest pain since about 2018 or earlier. Echocardiogram apparently was normal. He may have had a flare after the Pfizer vaccine, but he also had other nonspecific symptoms including fatigue. His chest pain has resolved. He is thinking about getting the second and third doses of COVID vaccine but has no plans right now. Assessment & Plan (05/15/2021 12:41 PM IRONER): It sounds like he has had problems with intermittent chest pains off and on for years. He had normal echocardiograms in 2015 and 2018. He had a more recent normal EKG. He describes a burning chest discomfort that occurs when he runs or does sit-ups. It does not occur when he swims or with other activities. He denies having heartburn with any particular food. He says has never seen a receiving coordinator. He says his heart symptoms worsened after the first dose of SARS-CoV-2 vaccine which he received on January 29. He did not receive the second dose. Cardiac exam is normal. We will refer him to Cardiology for further evaluation. Acne vulgaris 11/10/2017 Assessment & Plan (05/15/2021 12:35 PM IRONER): He has some improving acne for which he uses occasional OTC remedies. Continue same. Allergic rhinitis 01/21/2017 Overview (05/15/2021): Dr. Jiménez - Allergy injections the past. Currently uses Tahira primarily during the summer. Assessment & Plan (05/15/2021 12:38 PM IRONER): He used to have bad allergies to environmental allergens including certain foods. He still has an EpiPen at home but has never had to use it. Currently he uses Tahira during the summertime when his allergies flare up. Continue same. Attention deficit disorder (ADD) without hyperac tivity 06/29/2016 Overview (09/17/2019): 06-17-16 Concerta 18mg am (dx at [facility]), 06/2016 inc 27mg. 07/2016 Trialing off meds. 06-23-17 New Agreement signed & restarting - Adderall XR 10mg am. 07-15-17 UDS shows COMPLIANCE. F/U Sep 2017 w/ Dr. Lira In registry as [facility]. 09/14/19 signed Controlled Substance Agreement and restarting Concerta 27 mg. Assessment & Plan (11/10/2022 2:06 PM CDT): See HPI for details on mood and trouble concentrating. Scored 13 on DAREN-7 and 18 on PHQ-9. Discussed that mood swings can also cause inattentiveness. See plan for mood disorder above. Assessment & Plan (08/29/2021 7:35 PM IRONER): He is doing okay in school. He is studying music. He is interested in composition. 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 I encouraged his efforts in this direction. He does not socialize frequently but does get out about once a mouth with friends. Assessment & Plan (06/02/2021 4:22 PM IRONER): About five years ago, he was diagnosed with ADHD and possibly being on the autism spectrum. He was started on Concerta and switched to Adderall at a later time. He has not taken either of these medications recently. He thinks he might need to go back on something like Adderall because he has a lot of fatigue and lacks motivation. We will refer him to Psychiatry to see if medical treatment is appropriate. 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 Mood disorder 04/27/2015 Overview (05/15/2021): Intermittent over the years, saw a counselor for a while. Assessment & Plan (11/10/2022 2:10 PM CDT): Admits both anxiety and depression for years but worse in the last couple months. See HPI for details. Scored 13 on DAREN-7 and 18 on PHQ-9. Discussed several options in office today, agreed to start Celexa daily. Advised patient he will not see immediate effect of this medication. Relaxation techniques such as deep breathing, music therapy, and guided imagery encouraged. Try calm andres on smartphone. Given list of counselors in area, encouraged to find one he feels comfortable with. Follow in 1 month. Assessment & Plan (11/20/2022 9:09 AM CDT): He is quite distressed by his abdominal symptoms. He had to postpone some [employer] initiatives. He had to drop out of school in August. He does plan to go back in January but hopes to have his GI symptoms resolved by then. We printed a letter to excuse him from classes until further notice. Assessment & Plan (07/30/2022 4:58 PM IRONER): We discussed a possible trial of nortriptyline, not so much for his mood as for what sounds like functional bowel symptoms. However, we are putting that on hold for now pending GI evaluation. Assessment & Plan (08/17/2021 12:54 PM IRONER): His mood is stable. He still gets anxious. He plans to see a counselor through his [employer] where he is studying music. I encouraged him to pursue this because it seemed to help him when he was a younger teenager. Assessment & Plan (06/02/2021 4:23 PM IRONER): He has had intermittent mood problems for many years, starting around age 15. He says he lacks motivation and has no pleasure in life. He denies suicidal ideation. He saw a counselor many years ago which he says helped quite a bit, but that counselor has since retired. It does not sound like he ever took medications for depression, but he did take medicine for ADHD at one point. We will refer him to Psychiatry for a full evaluation of his mood problems. Headache 09/28/2010 Overview (02/16/2022): [facility] chart entry. Patient reports headaches from a young age. Details lacking. Improving as he gets older. Assessment & Plan (08/17/2021 12:54 PM IRONER): He says his headaches have been decreasing in frequency is he gets older. He takes occasional doses of Tylenol, about once or twice a week, which seems to help. Regular astigmatism 01/28/2010 Overview (11/24/2021): [facility], wears glasses. Refractive amblyopia 01/28/2010 Overview (11/24/2021): [facility] [employer], wears glasses. Allergic conjunctivitis 11/19/2009 Overview (11/24/2021): [facility] Resolved Problems Problem Noted Date Diagnosed Date Resolved Date Exotropia 11/24/2021 11/24/2021 Overview (11/24/2021): [facility]. S/P BILATERAL LATERAL RECTUS recession with superior transposition, [facility], 05/27/2016. Irritant contact dermatitis due to plants, except food 02/13/2021 05/15/2021 Overview (05/15/2021): Details lacking. Acute diffuse otitis externa of left ear 01/27/2021 05/15/2021 Overview (05/15/2021): Saw Dr. Foreman, ENT. Assessment & Plan (01/27/2021 12:56 PM CDT): Avoid ear cleaning techniques Avoid water to ears Continue ear drops to left ear for 2 more doses Continue head phones Avoid ear plugs for one more month Call if hearing does not seem to completely return for hearing test in one week Tylenol or Ibuprofen for pain Renal stone 06/05/2019 05/15/2021 Overview (05/15/2021): Saw Dr. Son. PER MOTHER from previous ER visit but US of kidneys 09-03-19 shows no stones. History of fatigue 05/15/2019 Overview (05/15/2021): Pediatric care. Details lacking. Allergy to meat 11/14/2018 05/15/2021 Overview (05/15/2021): Had alpha gal allergy as a kid, had an epi pen for use as needed, never used it, grew out of it by age 17 or so. Urticaria 12/20/2017 05/15/2021 Overview (05/15/2021): Details lacking. Encounter for routine child health examination with abnormal findings 11/10/201705/15 Overview (05/15/2021): Pediatric care. Impacted cerumen of left ear 07/08/2017 05/15/2021 Overview (05/15/2021): Saw Dr. Foreman. 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 History of Cando spotted fever 02/08/2017 08/16/2021 Overview (05/15/2021): Details lacking. Meningitis 01/28/2017 05/15/2021 Overview (05/15/2021): [facility] Medicine, details lacking. Sore throat 01/28/2017 08/16/2021 Overview (08/16/2021): [facility] entry, details lacking. Migraine headache 01/28/2017 08/16/2021 Overview (08/16/2021): [facility] entry, details lacking. Asthma 07/13/2016 05/15/2021 Overview (05/15/2021): History as a kid, but grew out of it. Acute streptococcal pharyngitis 07/13/2016 05/15/2021 Overview (05/15/2021): Agustín Nam, ANP, 07-13-16 keflex (conjunction w/ skin infection) Fine motor delay 04/21/2016 08/16/2021 Overview (08/16/2021): [facility] chart entry, details lacking. Diplopia 05/08/2014 11/24/2021 Overview (11/24/2021): [facility] Last Assessment & Plan: 1. Labs today: CK, Lactic acid, pyruvate, LDH, acetylcholine receptor antibodies (binding, blocking, modulating) 2. Mom to take pictures of droopy eyelids and send to us 3. Mom to note timing of eyelid droopiness and response to sleep 4. Consider further testing such as EMG as next steps. S/P BILATERAL LATERAL RECTUS recession with superior transposition, [facility], 05/27/2016. Hyperopia 01/28/2010 11/24/2021 Overview (11/24/2021): [facility] Health. S/P BILATERAL LATERAL RECTUS recession with superior transposition, [facility], 05/27/2016. Amblyopia 10/22/2009 11/24/2021 Overview (11/24/2021): [facility] Health, refractive error and dysconjugate gaze, mostly corrected with glasses and surgery. Esotropia, accommodative 10/22/2009 Overview (11/24/2021): [facility] Health, S/P BILATERAL LATERAL RECTUS recession with superior transposition, [facility], 05/27/2016. Encounters Date Type Department Care Team Description 01/31/2025 7:30 PM CDT Office Visit [facility] [address] [place] [address] Jessika Leal NP Weakness (Primary Dx); Abdominal pain; Other chest pain; Shortness of breath; Acute nasopharyngitis 11/01/2024 2:15 PM CDT Office Visit [facility] [address] [place] [address] Lesia Taylor NP Physical exam for camp (Primary Dx) from Last 3 Months Immunizations Immunization Administration Dates Next Due DTaP 07/12/2007, 4,01/16/2003,12/05,2002 HPV9 01/14/2020,11/14/2018 Hep B, Adolescent or Pediatric 02/06/2003,2002,2002 Hib (HbOC) 02/12/2004, 4,2002,10/10 Hib (PRP-OMP) 02/12/2004, 4,2002,10/10 IPV 07/12/2007, 5,2002,10/24 Influenza, Quadrivalent, Spl it, Intramuscular 04/05/2016 Influenza, Quadrivalent, Spl it, Pediatric, Preservative Free, Intramuscular 06/22/2013 Influenza, Quadrivalent, Spl it, Preservative Free, Intramuscular 05/13/2021,04/07/2020,04/09/2019,04/05 Influenza, Split 06/22/2013 Influenza, Trivalent, IM (MDV) 04/16/2015,2013,07/05/2012 Influenza, Trivalent, Preser vative Free, Intramuscular 05/16/2014,07/05/2012 MMR 07/12/2007,08/21/2003 Meningococcal Conjugate (Menveo) 11/14/2018 Meningococcal Polysaccharide (Menomune) 11/22/2013 Pneumococcal Conjugate 7-Valent 01/09/2003,11/14,2002 Tdap 11/22/2013 Varicella 09/10/2009,10/16/2003 Surgical History Surgery Date Site/Laterality Comments EYE SURGERY 05/27/2016 Bilateral BILATERAL LATERAL RECTUS recession with superior transposition, [facility]. COLONOSCOPY W/ BIOPSIES 09/13/2022 N/A Benign terminal ileum, with chronic nonspecific inflammation. Benign colonic mucosa with chronic nonspecific colitis with reactive lymphoid hyperplasia. Laureen Petersen MD, [place], [place]. Scanned report in media. Medical History Medical History Date Comments Acute streptococcal pharyngitis 07/13/2016 Saw Eugenie Nam, ANP, 07-13-16 keflex (conjunction w/ skin infection) Acute diffuse otitis externa of left ear 01/27/[address] Foreman, ENT. Encounter for routine child health examination with abnormal findings 11/10/2017 Pediatric care. Irritant contact dermatitis due to plants, except food 02/13/2021 Details lacking. Impacted cerumen of left ear 07/08/[address] Foreman. Renal stone 06/05/[address] Son. PER MOTHER from previous ER visit but US of kidneys 09-03-19 shows no stones. History of fatigue 05/15/2019 Pediatric car e. Details lacking. 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 Meningitis 01/28/2017 [facility] Medicine, details lacking. Asthma 07/13/2016 History as a kid , but grew out of it. Allergy to meat 11/14/2018 Had alpha gal al lergy as a kid, had an epi pen for use as needed, never used it, grew out of it by age 17 or so. Urticaria 12/20/2017 Details lacking. Sore throat 01/28/2017 [facility] entry, details lacking. Migraine headache 01/28/2017 [facility] entry, details lacking. Fine motor delay 04/21/2016 [facility] chart entry , details lacking. History of Cando sp otted fever 02/08/2017 Details lacking. Diplopia 05/08/2014 [facility] Last Assessm ent & Plan: 1. Labs today: CK, Lactic acid, pyruvate, LDH, acetylcholine receptor antibodies (binding, blocking, modulating) 2. Mom to take pictures of droopy eyelids and send to us 3. Mom to note timing of eyelid droopiness and response to sleep 4. Consider further testing such as EMG as next steps. S/P BILATERAL LAT Hyperopia 01/28/2010 [facility]. S/P BILATERAL LATERAL RECTUS recession with superior transposition, [facility], 05/27/2016. Exotropia 11/24/2021 [facility]. S/P BILATERAL LATERAL RECTUS recession with superior transposition, [facility], 05/27/2016. Esotropia, accommodative 10/22/2009 [facility] Hea lt, S/P BILATERAL LATERAL RECTUS recession with superior transposition, [facility], 05/27/2016. Amblyopia 10/22/2009 [facility], refr active error and dysconjugate gaze, mostly corrected with glasses and surgery. Covid-19 06/2021 Moderately ill Generalized abdominal pain 07/12/2022 Not s o much pain as bloating. FODMAP diet restrictions suggested. Dairy allergy Irritable bowel syndrome (IBS) Family History Medical History Relation Name Comments Ulcerative colitis Brother Coronary artery disease Father Repo rtedly due to radiation of chest Heart attack Father Relation Name Status Comments Brother Father Social History Tobacco Use Types Packs/Day Years Used Date Smoking Tobacco: Never Smokeless Tobacco: Never PHQ-2 Answer Date Recorded PHQ-2 Total Score (If total score is 3 or more points, staff should administer the PHQ-9) 4 11/10/2022 Sex and Gender Information Value Date Recorded Sex Assigned at Not on file Legal Sex Male 1:42 AM IRONER Gender Identity Not on file Sexual Orientation Not on file Obstetrics History Last Filed Vital Signs Vital Sign Reading Time Taken Comments Blood Pressure 124/64 01/31/2025 7:18 PM CDT Pulse 64 01/31/2025 7:18 PM CDT Temperature 36.4 C (97.6 F) 01/31/2025 7:18 PM CDT Respiratory Rate 20 01/31/2025 7:18 PM CDT Oxygen Saturation 94% 01/31/2025 7:18 PM CDT Inhaled Oxygen Concentration - - Weight 63.5 kg (140 lb) 01/31/2025 7:18 PM CDT Height 180.3 cm (5' 11) 01/31/2025 7:18 PM CDT Body Mass Index 19.53 01/31/2025 7:18 PM CDT Plan of Treatment Health Maintenance Due Date Last Done Comments Hepatitis C Screening 2002 Meningococcal B Vaccine (1 of 2 - Standard) 2018 HPV Vaccines (3 - Male 3-dose series) 04/07/2020 01/14/2020, 11/14/2018 Regular Well Visit/Exam 18-64 05/15/2022 05/15/2021, 12/03/2020 Depression Screening 11/11/2023 11/10/2022, 11/10/2022, 05/15/2021, Additional history exists DTaP/Tdap/Td Vaccine (7 - Td or Tdap) 11/23/2023 11/22/2013, 07/12/2007, 11/06/2003, Additional history exists Covid-19 Vaccine (2 - season) 2024 01/29/2021 Influenza Vaccine (#1) 2025 , 04/07/2020, 04/09/2019, Additional history exists Pneumococcal vaccine <65 Aged Out 003, 2002, 2002 No longer eligible based on patient's age to complete this topic Hepatitis B Screening Completed 02/06/2003 , 2002, 2002 Varicella Vaccines Completed 09/10/2009, 10/16/2003 Procedures Procedure Name Priority Date/Time Associated Diagnosis Comments POCT RAPID STREP Routine 01/31/2025 7:37 PM CDT Weakness POC INFLUENZA A/B, COVID-19 ANTIGEN Routine 01/31/2025 7:36 PM CDT Weakness from Last 3 Months Results * POCT rapid strep A (01/31/2025 7:37 PM CDT) Rapid Strep A, POC Negative Negative Swab 01/31/2025 7:37 PM CDT Jessika Leal WALL AND FLOOR TILER POINT OF CARE TEST ORDERAB LES Final Result * POC Influenza A/B, COVID-19 antigen (01/31/2025 7:36 PM CDT) Influenza A Ag, POC Negative Negative [facility] Influenza B Ag, POC Negative Negative [facility] COVID-19 Ag POC Presumptive Negative Presumptive Negative, Invalid [facility] Nasal 01/31/2025 7:36 PM CDT Jessika Leal WALL AND FLOOR TILER POINT OF CARE TEST ORDERAB LES Final Result [facility] [address] [place] [address], [facility] from Last 3 Months Insurance [employer] [facility] [address] [facility] CHOICE PLUS [facility] Care Teams Resume Specialist Relationship Specialty Start Date End Date Syed Mcclelland MD [address] [place] [address] PCP - General Internal Medicine 05/15/21 Lindsey Foreman DO [address] [facility] [address] ALYSSA Randolph [address] [address] Consulting Physician Otolaryngology 07/08/20
--- OUTSIDE RECORDS SUMMARY | 2025-01-31 20:43 | XMS_ITS | Encounter Summary ---
Author Organization [facility] Address [address] [place] [address] Phone Care Team Providers Care Fitter Type Bar And Segment Name Role Phone Renard Patel MD Primary Care Provider [phone] Lindsey Foreman DO Unavailable [phone] Syed Mcclelland MD Primary Care Provider [phone] Encounter Details Date Type Department Care Team (Late st Contact Info) Description 07/15/2017 Orders Only [facility] ProviderEd MD [address] [place] [address] Social History Tobacco Use Types Packs/Day Years Used Date Smoking Tobacco: Never Assessed Sex and Gender Information Value Date Recorded Sex Assigned at Not on file Legal Sex Male 1:42 AM FOREMAN OR SUPERVISOR AND OPERATOR Gender Identity Not on file Sexual Orientation Not on file documented as of this encounter Plan of Treatment Not on file documented as of this encounter Procedures Procedure Name Priority Date/Time Associated Diagnosis Comments DISCHARGE LABORATORY CUMULATIVE REPORT 07/15/2017 12:00 AM FOREMAN OR SUPERVISOR AND OPERATOR documented in this encounter Results * DISCHARGE LABORATORY CUMULATIVE REPORT (07/15/2017 12:00 AM FOREMAN OR SUPERVISOR AND OPERATOR) Narrative 07/15/2017 12:00 AM FOREMAN OR SUPERVISOR AND OPERATOR Ordered by an unspecified provider. Historical Provider LAB BLOOD ORDERABLES Dorota l Result documented in this encounter Visit Diagnoses Not on filedocumented in this encounter Additional Health Concerns Infection Onset Date Last Indicated Resolved Time COVID: Suspected 01/31/2025 01/31/2025 01/31/2025 7:37 PM CDT documented as of this encounter Care Teams Fitter Type Bar And Segment Relationship Specialty Start Date End Date Renard Patel MD [address] [place] [address] PCP - General 09/24/16 05/14/21 Syed Mcclelland MD [address] [place] [address] PCP - General Internal Medicine 05/15/21 Lindsey Foreman DO [address] [facility] [address] ALYSSA Randolph [facility] [address] [place] [address] Consulting Physician Otolaryngology 07/08/20 documented as of this encounter
--- OUTSIDE RECORDS SUMMARY | 2025-01-31 20:43 | XMS_ITS | Encounter Summary ---
Author Organization [facility] Address [address] [place] [address] Phone Care Team Providers Care Bus Boy Name Role Phone Renard Patel MD Primary Care Provider [phone] Lindsey Foreman DO Unavailable Syed Mcclelland MD Primary Care Provider [phone] Encounter Details Date Type Department Care Team (Late st Contact Info) Description 03/07/2021 Orders Only [facility] [address] [place] [address] Scanning, Provider Social History Tobacco Use Types Packs/Day Years Used Date Smoking Tobacco: Never Smokeless Tobacco: Never Sex and Gender Information Value Date Recorded Sex Assigned at Not on file Legal Sex Male 1:42 AM LABORER BITUMINOUS PAVING Gender Identity Not on file Sexual Orientation Not on file documented as of this encounter Plan of Treatment Not on file documented as of this encounter Procedures Procedure Name Priority Date/Time Associated Diagnosis Comments SCAN - LABS 03/07/2021 documented in this encounter Results * SCAN - LABS (03/07/2021) us Provider Scanning Final Result documented in this encounter Visit Diagnoses Not on filedocumented in this encounter Additional Health Concerns Infection Onset Date Last Indicated Resolved Time COVID: Suspected 01/31/2025 01/31/2025 01/31/2025 7:37 PM CDT documented as of this encounter Care Teams Bus Boy Relationship Specialty Start Date End Date Renard Patel MD [address] [place] [address] PCP - General 09/24/16 05/14/21 Syed Mcclelland MD [address] [place] [address] PCP - General Internal Medicine 05/15/21 Lindsey Foreman DO [address] [facility] [address] ALYSSA Randolph [address] [address] Consulting Physician Otolaryngology 07/08/20 documented as of this encounter
--- OUTSIDE RECORDS SUMMARY | 2025-01-31 20:43 | XMS_ITS | Encounter Summary ---
Author Organization [facility] Address [address] [place] [address] Phone Care Team Providers Care Actuarial Mathematician Name Role Phone Lindsey Foreman DO Unavailable [phone] Syed Mcclelland MD Primary Care Provider [phone] Encounter Details Date Type Department Care Team (Late st Contact Info) Description 07/09/2022 Orders Only [facility] [address] [place] [address] Syed Mcclelland MD [address] [address] Social History Tobacco Use Types Packs/Day Years Used Date Smoking Tobacco: Never Smokeless Tobacco: Never PHQ-2 Answer Date Recorded PHQ-2 Total Score (If total score is 3 or more points, staff should administer the PHQ-9) 6 05/15/2021 Sex and Gender Information Value Date Recorded Sex Assigned at Not on file Legal Sex Male 1:42 AM RELIABILITY SPECIALIST Gender Identity Not on file Sexual Orientation Not on file documented as of this encounter Plan of Treatment Not on file documented as of this encounter Procedures Procedure Name Priority Date/Time Associated Diagnosis Comments SCAN - RADIOLOGY/IMAGING 07/09/2022 documented in this encounter Results * SCAN - RADIOLOGY/IMAGING (07/09/2022) Anatomical Region Laterality Modality Other Syed Mcclelland MD Final Result documented in this encounter Visit Diagnoses Not on filedocumented in this encounter Additional Health Concerns Infection Onset Date Last Indicated Resolved Time COVID: Suspected 01/31/2025 01/31/2025 01/31/2025 7:37 PM CDT documented as of this encounter Care Teams Actuarial Mathematician Relationship Specialty Start Date End Date Syed Mcclelland MD [address] [place] [address] PCP - General Internal Medicine 05/15/21 Lindsey Foreman DO [address] [facility] [address] ALYSSA Randolph [facility] [address] [place] [address] Consulting Physician Otolaryngology 07/08/20 documented as of this encounter
--- OUTSIDE RECORDS SUMMARY | 2025-01-31 20:43 | XMS_ITS | Encounter Summary ---
Author Organization [facility] Healthcare Address [address] [place] [address] Care Team Providers Care Diver Helper Name Role Phone Lindsey Foreman DO Unavailable [phone] Syed Mcclelland MD Primary Care Provider [phone] Reason for Visit * Reason Comments Headache Headache, weakness, fatigue, SOB. symptoms started 3 days ago. Otc tylenol Encounter Details Date Type Department Care Team (Late st Contact Info) Description 01/31/2025 7:30 PM CDT Office Visit [facility] Medical Group [facility] [place] [address] [place] [address] Jessika Leal, INSULATION ENGINEMAN [address] [place] [address] Weakness (Primary Dx); Abdominal pain; Other chest pain; Shortness of breath; Acute nasopharyngitis Social History Tobacco Use Types Packs/Day Years Used Date Smoking Tobacco: Never Smokeless Tobacco: Never PHQ-2 Answer Date Recorded PHQ-2 Total Score (If total score is 3 or more points, staff should administer the PHQ-9) 4 11/10/2022 Sex and Gender Information Value Date Recorded Sex Assigned at Not on file Legal Sex Male 1:42 AM ANESTHESIA ASSISTANT Gender Identity Not on file Sexual Orientation Not on file documented as of this encounter Last Filed Vital Signs Vital Sign Reading [...] Mass Index 19.53 01/31/2025 7:18 PM CDT documented in this encounter Patient Instructions * Patient Instructions* Jessika Leal NP - 01/31/2025 7:30 PM CDT Thank you for allowing me to take care of you today. Diagnosis upper respiratory infection, shortness breast, chest pain. Test: COVID, influenza, rapid strep test was negative. Pt was walked around with pulse ox, pulse ox remained 97% but pt did get short of breath. Home care includes rest, hydration, over the counter medications, warm saltwater gargles, hot tea with honey, humidifier/vaporizer, throat lozenges/cough drops, Vicks vapor rub, Mucinex, Flonase, Neti pot/saline rinses, cold/sinus medication, Robitussin, Delsym. Follow up with your primary provider in 2-3 days as needed. Red flags include worsening symptoms including pain, swelling, headache, dizziness, congestion, fever, shortness of breath, chest pain, nausea/vomiting, abdomen pain, back pain, muscle pain, decreased range of motion, numbness/tingling, weakness, fatigue. Follow up with your primary provider, this clinic, or if severe go to ER. Thank you for entrusting your care to us today. Our patients are very important to us. Would you please take a minute to reply to the questionnaire that you will be receiving. * Attachments The following attachments cannot be sent through Care Everywhere. * Shortness of Breath (Picking Crew Supervisor) (Gabonese) * Upper Respiratory Infection (Picking Crew Supervisor) (Gabonese) * Chest Pain (Picking Crew Supervisor) (Gabonese) documented in this encounter Plan of Treatment Not on file documented as of this encounter Procedures Procedure Name Priority Date/Time Associated Diagnosis Comments POCT RAPID STREP Routine 01/31/2025 7:37 PM CDT Weakness POC INFLUENZA A/B, COVID-19 ANTIGEN Routine 01/31/2025 7:36 PM CDT Weakness documented in this encounter Results * POCT rapid strep A (01/31/2025 7:37 PM CDT) Rapid Strep A, POC Negative Negative Swab 01/31/2025 7:37 PM CDT Jessika Leal INSULATION ENGINEMAN POINT OF CARE TEST ORDERAB LES Final Result * POC Influenza A/B, COVID-19 antigen (01/31/2025 7:36 PM CDT) Influenza A Ag, POC Negative Negative [facility] Influenza B Ag, POC Negative Negative [facility] COVID-19 Ag POC Presumptive Negative Presumptive Negative, Invalid [facility] Nasal 01/31/2025 7:36 PM CDT Jessika Leal INSULATION ENGINEMAN POINT OF CARE TEST ORDERAB LES Final Result [facility] [address] [place] [address] documented in this encounter Visit Diagnoses Diagnosis Weakness- Primary Other malaise and fatigue Abdominal pain Abdominal pain, unspecified site Other chest pain Shortness of breath Acute nasopharyngitis Acute nasopharyngitis (common cold) documented in this encounter Additional Health Concerns Infection Onset Date Last Indicated Resolved Time COVID: Suspected 01/31/2025 01/31/2025 01/31/2025 7:37 PM CDT documented as of this encounter Care Teams Diver Helper Relationship Specialty Start Date End Date Syed Mcclelland MD [address] [place] [address] PCP - General Internal Medicine 05/15/21 Lindsey Foreman DO [address] [facility] [address] ALYSSA Randolph [facility] [address] [place] [address] Consulting Physician Otolaryngology 07/08/20 documented as of this encounter
--- OUTSIDE RECORDS SUMMARY | 2025-01-31 20:43 | XMS_ITS | Clinical Summary ---
Author Organization [facility] Address [address] [place] [place] [address] Care Team Providers Care Ob Gyn Name Role Phone Renard Patel MD Primary Care Provider [phone] Source Comments [facility],non-owned Affiliates and Associated Physician Practices is amultiple site organization consisting of ambulatory clinics and hospital sitesin [place], [place], [place] and [place]. This disclosure is being madepursuant to the Care Everywhere program and may not contain all information available regarding this patient. Last updated 18.[facility] mobifriends Allergies Active Allergy Reactions Criticality Noted Date Comments Singulair Other 11/19/2009 Nightmares Cetirizine Hcl Other 11/19/2009 Nightmares Medications * This document contains information received from the source organization and may not represent a complete record from that organization. * Be aware that medications may not be up to date on this document. Alwaysverify current medications with the patient. 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 For milder headaches, try to use conservative measures such as hydration, placing a cool rag on forehead, resting in a cool dark room etc. 1. Keep headache diary 2. Maintain active lifestyle 3. Eat healthy diet, and do not skip meals 4. Drink plenty of water, and avoid caffeine regularly. 5. Sleep: 1. Maintain good sleep routine. 2. Avoid distractions at bedtime such as TV, computer. 3. Get at least 8-10 hours of sleep nightly 4. Trial of Melatonin 1-3 mg at bedtime 5. Note other details of sleep such as snoring, restlessness etc that could impact on sleep quality 6. Do not use pain medication (such as Tylenol, Ibuprofen) more than 2-3 times/week in order to avoid medication overuse headaches 7. Use Naproxen 250 mg twice a day as needed only for headaches - take at onset of headache 8. Call in 4-6 weeks with update regarding headaches, sooner for concerns Diplopia 05/08/2014 Assessment & Plan (05/08/2014 12:18 PM PROPULSION ENGINEER): 1. Labs today: CK, Lactic acid, pyruvate, LDH, acetylcholine receptor antibodies (binding, blocking, modulating) 2. Mom to take pictures of droopy eyelids and send to us 3. Mom to note timing of eyelid droopiness and response to sleep 4. Consider further testing such as EMG as next steps. 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 These may have been due to singulair rather than the IT. IgE Immunocaps from 04/07/11: positive to cat, dog, trees, grass, ragweed, and other weeds. Allergic conjunctivitis 11/19/2009 Esotropia, accommodative 10/22/2009 Amblyopia 10/22/2009 Exotropia Chest pain Family History Medical History Relation Name Comments Allergies Father Glaucoma Maternal Grandfather Glaucoma Maternal Grandmother Anesthesia Reaction Mother PONV Relation Name Status Comments Brother Alive Father Alive Maternal Grandfather Maternal Grandmother Mother Alive Sister Alive Social History Tobacco Use Types Packs/Day Years Used Date Smoking Tobacco: Never Smokeless Tobacco: Never Alcohol Use Standard Drinks/Week Comments Not Asked 0 (1 standard drink = 0.6 oz pur e alcohol) Sex and Gender Information Value Date Recorded Sex Assigned at Not on file Legal Sex Male 5:45 AM PROPULSION ENGINEER Gender Identity Not on file Sexual Orientation Not on file Last Filed Vital Signs Vital Sign Reading Time Taken Comments Blood Pressure 116/62 05/27/2016 12:59 PM PROPULSION ENGINEER Pulse 88 05/27/2016 12:59 PM PROPULSION ENGINEER Temperature 36.8 C (98.2 F) 05/27/2016 12:15 PM PROPULSION ENGINEER Respiratory Rate 12 05/27/2016 12:59 PM PROPULSION ENGINEER Oxygen Saturation 100% 05/27/2016 12:59 PM PROPULSION ENGINEER Inhaled Oxygen Concentration 100% 05/27/2016 1 1:52 AM PROPULSION ENGINEER Weight 65.6 kg (144 lb 10 oz) 05/27/2016 9:14 AM PROPULSION ENGINEER Height 177.1 cm (5' 9.72) 05/27/2016 9:14 AM CS T Body Mass Index 20.92 05/27/2016 9:14 AM PROPULSION ENGINEER Plan of Treatment Health Maintenance Due Date Last Done Comments HIV SCREENING 2017 HPV VACCINE (1 - Male 3-dose series) 2017 MENINGOCOCCAL (Group B) VACCINE SHARED DECISION-MAKING (1 of 2 - Standard) 2018 HEPATITIS C SCREENING 07/17/2020 DTAP/TDAP/TD VACCINES (1 - Tdap) 2021 HEPATITIS B VACCINE (1 of 3 - 19+ 3-dose series) 2021 COVID-19 VACCINE (1 - season) 2024 DEPRESSION SCREENING 06/27/2024 INFLUENZA VACCINE (#1) 2025 , 04/07/2020, 04/09/2019, Additional history exists ZOSTER VACCINE (1 of 2) 2052 HIB VACCINE Aged Out No longer eligi ble based on patient's age to complete this topic MENINGOCOCCAL GROUPS A/C/Y/W VACCINE Aged Out No longer eligible based on patient's age to complete this topic PNEUMOCOCCAL VACCINE Aged Out No long er eligible based on patient's age to complete this topic Insurance [facility] [place] [address] [facility] [address] [facility] Care Teams Ob Gyn Relationship Specialty Start Date End Date Renard Patel MD [address] [address] PCP - General Pediatrics 03/17/15
[2025-01-31 20:50] VITALS: BP 121/60; PULSE 78; RESP 18; TEMP 36.8; O2SAT 99
[2025-01-31 21:02] LABS: Hematocrit 46.5 % (42.0-52.0); Hemoglobin 15.9 g/dL (14.0-18.0); Immature Granulocyte Percent A 0.1 % (0-0.5); Lymphocytes Absolute Auto 2.44 K/mm3 (0.9-3.2); Mean Corpuscular HGB Conc 34.2 g/dl (32-36); Mean Corpuscular Hemoglobin 31.7 pg (26-34); Mean Corpuscular Volume 92.8 fl (80-100); Nucleated Red Blood Cells Absolute Auto 0.000 K/mm3 (0.0-0.012); Nucleated Red Blood Cells Perc 0.0 % (0.0-0.2); Platelet Count Result 230 k/mm3 (150-375); Red Blood Count 5.01 M/mm3 (4.6-6.20); White Blood Count 8.8 K/mm3 (4.5-10.0)
[2025-01-31 21:13] LABS: INR 1.1; Partial Thromboplastin Time 26.7 Seconds (22.3-36.8); Prothrombin Time 14.1 Seconds (11.1-14.7)
[2025-01-31 21:16] LABS: Alanine Aminotransferase 24 U/L (6-50); Albumin Level 4.6 g/dL (3.5-5.1); Alkaline Phosphatase 44 U/L (38-126); Anion Gap 10 mmol/L (4-12); Aspartate Amino Transferase 32 U/L (17-59); Bilirubin,Total 1.1 mg/dL (0.2-1.3); Blood Urea Nitrogen 11 mg/dL (9-20); Calcium 9.5 mg/dL (8.4-10.2); Carbon Dioxide 29 mmol/L (22-30); Chloride 99 mmol/L (98-107); Estimated CRCL calculation 116 ml/min; Estimated Glomerular Filt Rate > 60; Glucose 117 mg/dL (65-110); Lipase 107 U/L (23-300); Potassium 4.0 mmol/L (3.4-5.0); Sodium 138 mmol/L (137-145); Total Protein 7.5 g/dL (6.3-8.2)
[2025-01-31 21:27] LABS: Troponin I < 0.012 ng/mL (0.000-0.034)
--- NOTE | 2025-01-31 23:56 | ECG_ITS ---
Test Date: 2025-02-01 00:05:26 Measurements Intervals Neche Rate: 49 P: 56 NE: 144 QRS: 66 QRSD: 96 T: 63 QT: 414 QTc: 375 Interpretive Statements SINUS BRADYCARDIA INCOMPLETE RIGHT BUNDLE BRANCH BLOCK ABNORMAL ECG Compared to ECG 01/31/2025 20:51:36 Short NE interval no longer present Electronically Signed On 02-01-2025 08:49:56 CDT by Alfred Castanon D.O.
[2025-02-01] VITALS (8 sets, daily range): BP systolic 115–130; BP diastolic 56–81; PULSE 45–60; RESP 15–19; O2SAT 100
[2025-02-01 00:35] LABS: Troponin I < 0.012 ng/mL (0.000-0.034)
--- OUTSIDE RECORDS SUMMARY | 2025-02-01 01:37 | XMS_ITS | Encounter Summary ---
Author Organization [facility] Healthcare Address [address] [place] [address] Care Team Providers Care Apparel Rental Clerk Name Role Phone Lindsey Foreman DO Unavailable [phone] Syed Mcclelland MD Primary Care Provider [phone] Reason for Visit * Reason Comments Headache Headache, weakness, fatigue, SOB. symptoms started 3 days ago. Otc tylenol Encounter Details Date Type Department Care Team (Late st Contact Info) Description 01/31/2025 7:30 PM CDT Office Visit [facility] Medical Group [facility] [place] [address] [place] [place] [address] Jessika Leal, ELEMENTARY SUBSTITUTE TEACHER [address] [facility] [place] [place] [address] Weakness (Primary Dx); Abdominal pain; [...] on file Legal Sex Male 1:42 AM REPLANTER Gender Identity Not on file Sexual Orientation [...] through Care Everywhere. * Shortness of Breath (Physician Assistant Surgery) (Nicaraguan) * Upper Respiratory Infection (Physician Assistant Surgery) (Nicaraguan) * Chest Pain (Physician Assistant Surgery) (Nicaraguan) documented in this encounter Plan of Treatment [...] Swab 01/31/2025 7:37 PM CDT Jessika Leal ELEMENTARY SUBSTITUTE TEACHER POINT OF CARE TEST ORDERAB LES Final Result * POC Influenza A/B, COVID-19 antigen (01/31/2025 7:36 PM CDT) Influenza A Ag, POC Negative Negative [facility] Influenza B Ag, POC Negative Negative [facility] COVID-19 Ag POC Presumptive Negative Presumptive Negative, Invalid [facility] Nasal 01/31/2025 7:36 PM CDT Jessika Leal ELEMENTARY SUBSTITUTE TEACHER POINT OF CARE TEST ORDERAB LES Final Result [facility] [address] [place] [address] documented in this encounter Visit Diagnoses Diagnosis Weakness- Primary Other malaise and fatigue Abdominal pain Abdominal pain, unspecified site Other chest pain Shortness of breath Acute nasopharyngitis Acute nasopharyngitis (common cold) documented in this encounter Additional Health Concerns Infection Onset Date Last Indicated Resolved Time COVID: Suspected 01/31/2025 01/31/2025 01/31/2025 7:37 PM CDT documented as of this encounter Care Teams Apparel Rental Clerk Relationship Specialty Start Date End Date Syed Mcclelland MD [address] [place] [address] PCP - General Internal Medicine 05/15/21 Lindsey Foreman DO [address] [facility] [address] ALYSSA Randolph [facility] [address] [place] [address] Consulting Physician Otolaryngology 07/08/20 documented as of this encounter
--- OUTSIDE RECORDS SUMMARY | 2025-02-01 01:37 | XMS_ITS | Encounter Summary ---
Author Organization [facility] Address [address] [place] [address] Phone Care Team Providers Care Cloth Mercerizer Back Tender Name Role Phone Lindsey Foreman DO Unavailable [phone] Syed Mcclelland MD Primary Care Provider [phone] Encounter Details Date Type Department Care Team (Late st Contact Info) Description 07/09/2022 Orders Only [facility] [address] [place] [address] Syed Mcclelland MD [address] [address] Social History Tobacco Use Types Packs/Day Years Used Date Smoking Tobacco: Never Smokeless Tobacco: Never PHQ-2 Answer Date Recorded PHQ-2 Total Score (If total score is 3 or more points, staff should administer the PHQ-9) 6 05/15/2021 Sex and Gender Information Value Date Recorded Sex Assigned at Not on file Legal Sex Male 1:42 AM EMBLEM DRAWER IN Gender Identity Not on file Sexual Orientation [...] documented as of this encounter Care Teams Cloth Mercerizer Back Tender Relationship Specialty Start Date End Date Syed Mcclelland MD [address] [place] [address] PCP - General Internal Medicine 05/15/21 Lindsey Foreman DO [address] [facility] [address] ALYSSA Randolph [facility] [address] [place] [address] Consulting Physician Otolaryngology 07/08/20 documented as of this encounter
--- OUTSIDE RECORDS SUMMARY | 2025-02-01 01:37 | XMS_ITS | Clinical Summary ---
Author Organization [facility] Address [address] [place] [address] Care Team Providers Care Visitor Services Representative Name Role Phone Renard Patel MD Primary Care Provider [phone] Source Comments [facility],non-owned Affiliates and Associated Physician Practices is amultiple site organization consisting of ambulatory clinics and hospital sitesin [place], [place], [place] and [place]. This disclosure is being madepursuant to the Care Everywhere program and may not contain all information available regarding this patient. Last updated 18.[facility] [employer] Allergies Active Allergy Reactions Criticality Noted Date [...] 05/08/2014 Assessment & Plan (05/08/2014 12:11 PM IMMIGRATION JUDGE): Headaches are mostly milder mixed headache type [...] 05/08/2014 Assessment & Plan (05/08/2014 12:18 PM IMMIGRATION JUDGE): 1. Labs today: CK, Lactic acid, pyruvate, [...] on file Legal Sex Male 5:45 AM IMMIGRATION JUDGE Gender Identity Not on file Sexual Orientation Not on file Last Filed Vital Signs Vital Sign Reading Time Taken Comments Blood Pressure 116/62 05/27/2016 12:59 PM IMMIGRATION JUDGE Pulse 88 05/27/2016 12:59 PM IMMIGRATION JUDGE Temperature 36.8 C (98.2 F) 05/27/2016 12:15 PM IMMIGRATION JUDGE Respiratory Rate 12 05/27/2016 12:59 PM IMMIGRATION JUDGE Oxygen Saturation 100% 05/27/2016 12:59 PM IMMIGRATION JUDGE Inhaled Oxygen Concentration 100% 05/27/2016 1 1:52 AM IMMIGRATION JUDGE Weight 65.6 kg (144 lb 10 oz) 05/27/2016 9:14 AM IMMIGRATION JUDGE Height 177.1 cm (5' 9.72) 05/27/2016 9:14 AM CS T Body Mass Index 20.92 05/27/2016 9:14 AM IMMIGRATION JUDGE Plan of Treatment Health Maintenance Due Date [...] patient's age to complete this topic Insurance [facility] [place] [address] [facility] [address] [facility] Care Teams Visitor Services Representative Relationship Specialty Start Date End Date Renard Patel MD [address] [address] PCP - General Pediatrics 03/17/15
--- OUTSIDE RECORDS SUMMARY | 2025-02-01 01:37 | XMS_ITS | Encounter Summary ---
Author Organization [facility] Address [address] [place] [address] Phone Care Team Providers Care Machine Tech Name Role Phone Renard Patel MD Primary Care Provider [phone] Lindsey Foreman DO Unavailable [phone] Syed Mcclelland MD Primary Care Provider [phone] Encounter Details Date Type Department Care Team (Late st Contact Info) Description 07/15/2017 Orders Only [facility] ProviderEd MD [address] [place] [address] Social History Tobacco Use Types Packs/Day Years Used Date Smoking Tobacco: Never Assessed Sex and Gender Information Value Date Recorded Sex Assigned at Not on file Legal Sex Male 1:42 AM TEACHER CITIZENSHIP Gender Identity Not on file Sexual Orientation Not on file documented as of this encounter Plan of Treatment Not on file documented as of this encounter Procedures Procedure Name Priority Date/Time Associated Diagnosis Comments DISCHARGE LABORATORY CUMULATIVE REPORT 07/15/2017 12:00 AM TEACHER CITIZENSHIP documented in this encounter Results * DISCHARGE LABORATORY CUMULATIVE REPORT (07/15/2017 12:00 AM TEACHER CITIZENSHIP) Narrative 07/15/2017 12:00 AM TEACHER CITIZENSHIP Ordered by an unspecified provider. Historical Provider LAB BLOOD ORDERABLES Dorota l Result documented in this encounter Visit Diagnoses Not on filedocumented in this encounter Additional Health Concerns Infection Onset Date Last Indicated Resolved Time COVID: Suspected 01/31/2025 01/31/2025 01/31/2025 7:37 PM CDT documented as of this encounter Care Teams Machine Tech Relationship Specialty Start Date End Date Renard Patel MD [address] [place] [address] PCP - General 09/24/16 05/14/21 Syed Mcclelland MD [address] [place] [address] PCP - General Internal Medicine 05/15/21 Lindsey Foreman DO [address] [facility] [facility] [address] ALYSSA Randolph [facility] [address] [place] [address] Consulting Physician Otolaryngology 07/08/20 documented as of this encounter
--- OUTSIDE RECORDS SUMMARY | 2025-02-01 01:37 | XMS_ITS ---
Author Organization [facility] [employer] [facility] Address [facility] [address] [address] Care Team Providers Care Umbrella Cutter Name Role Phone Syed Mcclelland MD Primary Care Provider Unavailab Leona Maldonado Unavailable [phone] Son Handley Unavailable [phone] REASON FOR VISIT 1 month f/u Medications [...] 11/16/2024 Encounters Encounter Location Date Provider Diagnosis [facility] [place] [address] [address] [address] 11/16/2024 Son Handley Plan Of Treatment No Information Progress Notes * PHILLYGABRIELDOB:[birth year] (24 yo M)Acc No.[id number]:11/16/2024 Transfer of Care from [facility] Patient: GABRIEL TIRADO Provider: DINAH BHAGAT :2000 A ge:24 Y S ex:Male Date:11/16/2024 Phone: Address:[address] Pcp:Syed Mcclelland MD Subjective: * Chief Complaints: [...] Electronic signature of Oliver DINAH Rodriguez on 02/01/2025 at 01:36 AM CDT Sign off status: Pending * Provider: DINAH BHAGAT Date: 0 11/16/2024 Generated for Printi ng/Faxing/eTransmitting on: 0 02/01/2025 01:36 AM CDT History and Physical Notes * HPI [...]
--- OUTSIDE RECORDS SUMMARY | 2025-02-01 01:37 | XMS_ITS | Clinical Summary ---
Author Organization Address [address] [place] [address] Care Team Providers Care Ore Feeder Name Role Phone Lindsey Foreman DO Unavailable Syed Mcclelland MD Primary Care Provider [phone] Allergies Active Allergy Reactions Criticality Noted Date [...] a GI evaluation near his [employer] in [place] including a colonoscopy that was negative for [...] needed. Assessment & Plan (08/17/2022 6:14 AM CATEGORY MANAGER): He has a long history of constipation [...] recommendation. Assessment & Plan (07/13/2022 10:44 AM CATEGORY MANAGER): Chronic problem, Worse over the last several [...] month. Assessment & Plan (07/30/2022 4:57 PM CATEGORY MANAGER): He says pain is not a major [...] evaluation by a GI specialist near his [place] in [place]. In the meantime, I suggested various remedies discussed elsewhere, as well as a FODMAP and/or gluten elimination diet. Assessment & Plan (07/13/2022 10:46 AM CATEGORY MANAGER): intermittent problem, Worse over the last several [...] pain. Assessment & Plan (08/17/2021 12:53 PM CATEGORY MANAGER): He had a lot of fatigue after the first dose of COVID vaccine, but says he is doing much better with respect energy level. He is thinking about getting the second dose of COVID vaccine, but not right now. Assessment & Plan (05/15/2021 12:49 PM CATEGORY MANAGER): He complains of having low energy and [...] vaccine. Assessment & Plan (08/17/2021 12:56 PM CATEGORY MANAGER): He has had intermittent chest pain since [...] now. Assessment & Plan (05/15/2021 12:41 PM CATEGORY MANAGER): It sounds like he has had problems [...] food. He says has never seen a welt edge rounder. He says his heart symptoms worsened after the first dose of SARS-CoV-2 vaccine which he received on January 29. He did not receive the second dose. Cardiac exam is normal. We will refer him to Cardiology for further evaluation. Acne vulgaris 11/10/2017 Assessment & Plan (05/15/2021 12:35 PM CATEGORY MANAGER): He has some improving acne for which he uses occasional OTC remedies. Continue same. Allergic rhinitis 01/21/2017 Overview (05/15/2021): Dr. Jiménez - Allergy injections the past. Currently uses Tahira primarily during the summer. Assessment & Plan (05/15/2021 12:38 PM CATEGORY MANAGER): He used to have bad allergies to environmental allergens including certain foods. He still has an EpiPen at home but has never had to use it. Currently he uses Tahira during the summertime when his allergies flare up. Continue same. Attention deficit disorder (ADD) without hyperac tivity 06/29/2016 Overview (09/17/2019): 06-17-16 Concerta 18mg am (dx at [facility]), 06/2016 inc 27mg. 07/2016 Trialing off meds. [...] above. Assessment & Plan (08/29/2021 7:35 PM CATEGORY MANAGER): He is doing okay in school. He is studying music. He is interested in composition. 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 I encouraged his efforts in this direction. He does not socialize frequently but does get out about once a mouth with friends. Assessment & Plan (06/02/2021 4:22 PM CATEGORY MANAGER): About five years ago, he was diagnosed [...] Autism spectrum disorder 06/29/2016 Overview (01/21/2017): -22-16 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 He had to postpone some [employer] Managerout initiatives. He had to drop out of school in August. He does plan to go back in January but hopes to have his GI symptoms resolved by then. We printed a letter to excuse him from classes until further notice. Assessment & Plan (07/30/2022 4:58 PM CATEGORY MANAGER): We discussed a possible trial of nortriptyline, not so much for his mood as for what sounds like functional bowel symptoms. However, we are putting that on hold for now pending GI evaluation. Assessment & Plan (08/17/2021 12:54 PM CATEGORY MANAGER): His mood is stable. He still gets anxious. He plans to see a counselor through his [employer] where he is studying music. I encouraged him to pursue this because it seemed to help him when he was a younger teenager. Assessment & Plan (06/02/2021 4:23 PM CATEGORY MANAGER): He has had intermittent mood problems for [...] his mood problems. Headache 09/28/2010 Overview (02/16/2022): [facility] chart entry. Patient reports headaches from a young age. Details lacking. Improving as he gets older. Assessment & Plan (08/17/2021 12:54 PM CATEGORY MANAGER): He says his headaches have been decreasing in frequency is he gets older. He takes occasional doses of Tylenol, about once or twice a week, which seems to help. Regular astigmatism 01/28/2010 Overview (11/24/2021): [facility], wears glasses. Refractive amblyopia 01/28/2010 Overview (11/24/2021): [facility], wears glasses. Allergic conjunctivitis 11/19/2009 Overview (11/24/2021): [facility] Resolved Problems Problem Noted Date Diagnosed Date Resolved Date Exotropia 11/24/2021 11/24/2021 Overview (11/24/2021): [facility]. S/P BILATERAL LATERAL RECTUS recession with superior transposition, [facility], 05/27/2016. Irritant contact dermatitis due to plants, [...] ear cleaning techniques Avoid water to ears [place] spotted fever 02/18/2017 05/15/2021 Overview (05/15/2021): Pediatric care, details lacking. History of [place] spotted fever 02/08/2017 08/16/2021 Overview (05/15/2021): Details lacking. Meningitis 01/28/2017 05/15/2021 Overview (05/15/2021): [facility] Medicine, details lacking. Sore throat 01/28/2017 08/16/2021 Overview (08/16/2021): [facility] entry, details lacking. Migraine headache 01/28/2017 08/16/2021 Overview (08/16/2021): [facility] entry, details lacking. Asthma 07/13/2016 05/15/2021 Overview (05/15/2021): History as a kid, but grew out of it. Acute streptococcal pharyngitis 07/13/2016 05/15/2021 Overview (05/15/2021): Agustín Nam, ANP, 07-13-16 keflex (conjunction w/ skin infection) Fine motor delay 04/21/2016 08/16/2021 Overview (08/16/2021): [facility] chart entry, details lacking. Diplopia 05/08/2014 11/24/2021 Overview (11/24/2021): [facility] Last Assessment & Plan: 1. Labs today: CK, Lactic acid, pyruvate, LDH, acetylcholine receptor antibodies (binding, blocking, modulating) 2. Mom to take pictures of droopy eyelids and send to us 3. Mom to note timing of eyelid droopiness and response to sleep 4. Consider further testing such as EMG as next steps. S/P BILATERAL LATERAL RECTUS recession with superior transposition, [facility], 05/27/2016. Hyperopia 01/28/2010 11/24/2021 Overview (11/24/2021): [facility] Health. S/P BILATERAL LATERAL RECTUS recession with superior transposition, [facility], 05/27/2016. Amblyopia 10/22/2009 11/24/2021 Overview (11/24/2021): [facility] Health, refractive error and dysconjugate gaze, mostly corrected with glasses and surgery. Esotropia, accommodative 10/22/2009 Overview (11/24/2021): [facility] Health, S/P BILATERAL LATERAL RECTUS recession with superior transposition, [facility], 05/27/2016. Encounters Date Type Department Care Team Description 01/31/2025 7:30 PM CDT Office Visit [facility] at [address] [place] [address] Jessika Leal NP Weakness (Primary Dx); Abdominal pain; Other chest pain; Shortness of breath; Acute nasopharyngitis 11/01/2024 2:15 PM CDT Office Visit [facility] at [address] [place] [address] Lesia Taylor NP Physical exam for camp [...] with reactive lymphoid hyperplasia. Laureen Petersen MD, [place], [place]. Scanned report in media. Medical History [...] fatigue 05/15/2019 Pediatric car e. Details lacking. [place] spotted fever 02/18/2017 Ped iatric care, details lacking. Meningitis 01/28/2017 [facility] Medicine, details lacking. Asthma 07/13/2016 History as a kid , but grew out of it. Allergy to meat 11/14/2018 Had alpha gal al lergy as a kid, had an epi pen for use as needed, never used it, grew out of it by age 17 or so. Urticaria 12/20/2017 Details lacking. Sore throat 01/28/2017 [facility] entry, details lacking. Migraine headache 01/28/2017 [facility] entry, details lacking. Fine motor delay 04/21/2016 [facility] chart entry , details lacking. History of [place] sp otted fever 02/08/2017 Details lacking. Diplopia 05/08/2014 [facility] Last Assessm ent & Plan: 1. Labs today: CK, Lactic acid, pyruvate, LDH, acetylcholine receptor antibodies (binding, blocking, modulating) 2. Mom to take pictures of droopy eyelids and send to us 3. Mom to note timing of eyelid droopiness and response to sleep 4. Consider further testing such as EMG as next steps. S/P BILATERAL LAT Hyperopia 01/28/2010 [facility]. S/P BILATERAL LATERAL RECTUS recession with superior transposition, [facility], 05/27/2016. Exotropia 11/24/2021 [facility]. S/P BILATERAL LATERAL RECTUS recession with superior transposition, [facility], 05/27/2016. Esotropia, accommodative 10/22/2009 [facility] Hea lt, S/P BILATERAL LATERAL RECTUS recession with superior transposition, [facility], 05/27/2016. Amblyopia 10/22/2009 [facility], refr active error and dysconjugate gaze, mostly [...] on file Legal Sex Male 1:42 AM CATEGORY MANAGER Gender Identity Not on file Sexual Orientation [...] Swab 01/31/2025 7:37 PM CDT Jessika Leal CLINICAL NEUROPSYCHOLOGIST POINT OF CARE TEST ORDERAB LES Final Result * POC Influenza A/B, COVID-19 antigen (01/31/2025 7:36 PM CDT) Influenza A Ag, POC Negative Negative [facility] Influenza B Ag, POC Negative Negative [facility] COVID-19 Ag POC Presumptive Negative Presumptive Negative, Invalid [facility] DEX Nasal 01/31/2025 7:36 PM CDT Jessika Leal CLINICAL NEUROPSYCHOLOGIST POINT OF CARE TEST ORDERAB LES Final Result [facility] [address] [place] [address], [facility] from Last 3 Months Insurance [id number] [place] [address] [facility] Care Teams Ore Feeder Relationship Specialty Start Date End Date Syed Mcclelland MD [address] [place] [address] PCP - General Internal Medicine 05/15/21 Lindsey Foreman DO [address] [facility] [address] ALYSSA Randolph [address] [address] Consulting Physician Otolaryngology 07/08/20
--- OUTSIDE RECORDS SUMMARY | 2025-02-01 01:37 | XMS_ITS | Encounter Summary ---
Author Organization [facility] Address [address] [place] [address] Phone Care Team Providers Care Baggage Porter Head Name Role Phone Renard Patel MD Primary Care Provider [phone] Lindsey Foreman DO Unavailable [phone] Syed Mcclelland MD Primary Care Provider [phone] Encounter Details Date Type Department Care Team (Late st Contact Info) Description 03/07/2021 Orders Only [facility] [address] [place] [address] Scanning, Provider Social History Tobacco Use Types Packs/Day Years Used Date Smoking Tobacco: Never Smokeless Tobacco: Never Sex and Gender Information Value Date Recorded Sex Assigned at Not on file Legal Sex Male 1:42 AM SHIRT IRONER Gender Identity Not on file Sexual [...] documented as of this encounter Care Teams Baggage Porter Head Relationship Specialty Start Date End Date Renard Patel MD [address] [place] [address] PCP - General 09/24/16 05/14/21 Syed Mcclelland MD [address] [place] [address] PCP - General Internal Medicine 05/15/21 Lindsey Foreman DO [address] [facility] [address] [address] ALYSSA Randolph [address] [address] Consulting Physician Otolaryngology 07/08/20 documented as of this encounter
--- OUTSIDE RECORDS SUMMARY | 2025-02-01 01:37 | XMS_ITS | Clinical Summary ---
Author Organization [facility] Address [address] [place] [address] Phone Care Team Providers Care Fuel Distribution System Operator Name Role Phone Syed Mcclelland MD Primary Care Provider [phone] Allergies Active Allergy Reactions Criticality Noted Date Comments Cetirizine Hcl Other (see Comments),Unknown 11/19/2009 Nightmares Nightmares Montelukast Other (see Comments) 11/19/2009 Nightmares Medications No known medications Immunizations Immunization Administration Dates Next Due DTAP VACCINE 07/12/2007, 4,01/16/2003,12/05,2002 Hepatitis B Vaccine, Pediatric/adolescent 02/06/2003,2002,2002 Hib (HbOC) 02/12/2004, 4,2002,10/10 Hib (PRP-OMP) Vaccine 02/12/2004, 004,2002,10/10 Human [...] Comments Blood Pressure 120/66 05/13/2021 10:29 AM DREDGE PUMPER Pulse 64 05/13/2021 10:29 AM DREDGE PUMPER Temperature 36.8 C (98.2 F) 05/13/2021 10:29 AM DREDGE PUMPER Respiratory Rate 16 05/13/2021 10:29 AM DREDGE PUMPER Oxygen Saturation 98% 05/13/2021 10:29 AM DREDGE PUMPER Inhaled Oxygen Concentration - - Weight 70.8 kg (156 lb) 05/13/2021 10:29 AM DREDGE PUMPER Height 180.3 cm (5' 11) 05/13/2021 10:29 AM DREDGE PUMPER Body Mass Index 21.76 05/13/2021 10:29 AM DREDGE PUMPER Plan of Treatment Health Maintenance Due Date [...] patient's age to complete this topic Insurance [facility] Care Teams Fuel Distribution System Operator Relationship Specialty Start Date End Date Syed Mcclelland MD [employer], [address] [place] [address] PCP - General Infectious Disease 03/08/22
--- OUTSIDE RECORDS SUMMARY | 2025-02-01 01:37 | XMS_ITS | Patient Health Record ---
Author Organization [facility] Address [address] [facility] [address] [place] [address] Care Team Providers Care Vehicle Dynamics Engineer Name Role Phone Syed Mcclelland MD Primary Care Provider Unavailab Leona Maldonado Unavailable [phone] Son Handley Unavailable [phone] Justine Barnard Unavailable [phone] Vlad Gutierrez Unavailable [phone] Allergies Allergen (clinical drug ingredient) Drug/Non Drug [...] Severe recurrent major depression without psychotic features (62902009) Major depressive disorder, recurrent severe without psychotic features (F33.2) Active confirmed Problem Generalized anxiety disorder (52461343) Generalized anxiety disorder (F41.1) Active confirmed Problem Attention deficit hyperactivity disorder (309163073) Attention-deficit hyperactivity disorder, unspecified type (F90.9) Active confirmed Problem Depression Screening (624749316) Encounter for screening for depression (Z13.31) Active confirmed Problem Moderate recurrent major depression (30334560) MDD (major depressive disorder), recurrent episode, moderate (F33.1) Active confirmed Problem History of psychiatric disorder (476283260) History of ADHD (Z86.59) Active confirmed Vital Signs Heart Rate 49 /min 10/31/2024 Blood pressure diastolic 70 mm Hg 10/31/2024 Weight-kg 64.68 kg 10/31/2024 Blood pressure systolic 109 mm Hg 10/31/2024 Weight 142.6 lbs 10/31/2024 Encounters Encounter Location Date Provider Diagnosis [employer], [employer] [address] [place] [address] 06/11/2024 Justine Hinderliter Major depressive disorder, recurrent severe without psychotic features F33.2 ; Generalized anxiety disorder F41.1 and Attention-deficit hyperactivity disorder, unspecified type F90.9 [employer], [employer] [address] [place] [address] 06/26/2024 Justine Hinderliter Major depressive disorder, recurrent severe without psychotic features F33.2 ; Generalized anxiety disorder F41.1 and Attention-deficit hyperactivity disorder, unspecified type F90.9 [employer], [employer] [address] [place] [address] 07/03/2024 Justine Hinderliter Major depressive disorder, recurrent severe without psychotic features F33.2 ; Generalized anxiety disorder F41.1 and Attention-deficit hyperactivity disorder, unspecified type F90.9 [employer], [employer] [address] [place] [address] 07/17/2024 Justine Hinderliter [employer], [employer] [address] [place] [address] 07/30/2024 Justine Hinderliter Major depressive disorder, recurrent severe without psychotic features F33.2 ; Generalized anxiety disorder F41.1 and Attention-deficit hyperactivity disorder, unspecified type F90.9 [employer], [facility] [address] [facility] [address] [place] [address] 08/06/2024 Justine Barnard [facility] [employer] [facility], [facility] [address] [place] [address] 10/31/2024 Vlad Clubb MDD (major depressiv e disorder), recurrent episode, moderate F33.1 ; History of ADHD Z86.59 ; Encounter for screening for depression Z13.31 and Encounter for screening for cardiovascular disorders Z13.6 [facility] [employer] [facility] [address] [facility] [address] [place] [address] 01/22/2025 Leona Harper [facility] [facility] [address] [address] 06/21/2024 Justine Barnard [facility] [employer] [facility] [address] [address] 07/23/2024 Justine Barnard [facility] [facility] [address] [facility] [address] [address] 10/25/2024 Justine Barnard Assessments Encounter Date Diagnosis (ICD Code) Assessment Notes Treatment Notes Treatment Clinical Notes Section Notes 06/11/2024 Major depressive disorder, recurrent severe without psychotic features (ICD-10 - F33.2) Marital Status: Single Living Arrangement: lives with mom Children: 0 Support System: Mom, off and on with sister Highest Level of Education: Some college Employment Status: 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 [...] needs and goals, such as attending the [employer], rather than seeking validation from their father. [...] the . - Explore opportunities at the [employer] and some sugar or other local establishments. 5. Emotional Well-being and Paranoia - Maintain distance from the situation at [facility], concentrating on personal development. - Focus [...] the . - Explore opportunities at the [employer] and some sugar or other local establishments. 5. Emotional Well-being and Paranoia - Maintain distance from the situation at [facility], concentrating on personal development. - Focus [...] the . - Explore opportunities at the [employer] and some sugar or other local establishments. 5. Emotional Well-being and Paranoia - Maintain distance from the situation at [facility], concentrating on personal development. - Focus [...] needs and goals, such as attending the [facility], rather than seeking validation from their father. [...] Some college Employment Status: college student at [employer], on leave for spring History: Denied [...] depression. Falling out with best friend, current [employer] campaign. Another friend in a car accident. [...] send to DINAH MCFARLAND on 11/16/24 r/t [facility] walk-in clinic policy on controlled substances. Anxiety/depress [...] Insured Coverage Start Date Coverage End Date [facility] [address] [address] [place] [address] [id number] A [id number] GABRIEL FRAGA Self - patient is the insured [facility] [address] [address] [place] [address] [id number] GABRIEL FRAGA Self - patient is the insured Medical (General) History Medical History History ICD Code Attention deficit disorder (ADD) without hyperactivity 2017 astigmatism irritable bowel syndrome [place] spotted fever 02/18/2017 Meningitis 01/28/2017 Asthma 07/13/2016 History as a kid, but grew out of it. Chronic idiopathic constipation Hospitalization History Reason Date(Month/Year) [place] spotted fever 02/18/2017 Meningitis 01/28/2017
--- NOTE | 2025-02-01 02:03 | ED.CHESTPAIN ---
HPI - Chest Pain General Chief Complaint: Chest Pain <Camilla Kirby APRN - Last Filed: 02/01/25 03:12> Stated Complaint: Chest pain-shortness of breath <Camilla Kirby APRN - Last Filed: 02/01/25 03:12> Time Seen by Provider: 02/01/25 01:19 <Camilla Kirby APRN - Last Filed: 02/01/25 03:12> History of Present Illness HPI narrative: Patient is a 24-year-old male who presents to the ER with a 1 week history of feeling ?under the weather. He endorses chest pain, abdominal pain, shortness of breath, achiness, shakiness, and dizziness. Patient reports he experienced chest pain 3 days ago but that has since subsided. His mother reports her biggest concern is his shortness of breath. Patient reports he may have had a fever one of the nights during the past week but he is unsure. He endorses a history of bradycardia, GI problems, [place] spotted fever, meningitis, and GERD. Patient denies any abdominal pain, back pain, lower extremity swelling. <Camilla Kirby APRN - Last Filed: 02/01/25 03:12> Related Data Home Medications: Home Medications ?Medication ?Instructions ?Recorded ?Confirmed ?Last Taken ?Type No Home Medications 07/15/21 07/15/21 Unknown History <Camilla Kirby APRN - Last Filed: 02/01/25 03:12> Allergies/Adverse Reactions: Allergies Allergy/AdvReac Type Severity Reaction Status Date / Time No Known Allergies Allergy Verified 01/31/25 20:53 <Camilla Kirby APRN - Last Filed: 02/01/25 03:12> Review of Systems Review of Systems: All systems reviewed & are unremarkable except as noted in HPI and below <Camilla Kirby APRN - Last Filed: 02/01/25 03:12> PMFSH Family History Family History: Family History Other Asthma <Camilla Kirby APRN - Last Filed: 02/01/25 03:12> Social History Social History: Social History Smoking status: Never smoker Alcohol intake: never Substance use: never Substance use type: does not use Living arrangements: with family Gender identity (if verbalized by the patient): Male <Camilla Kirby APRN - Last Filed: 02/01/25 03:12> Exam Narrative: GENERAL: Well appearing, well-nourished, non-toxic, in no acute distress. HEAD: Normocephalic, atraumatic. NECK: Supple. No adenopathy, no masses. RESPIRATORY: Airway patent, respirations nonlabored. Clear to auscultation bilaterally, no rales, rhonchi, wheezing. CARDIOVASCULAR: Bradycardia without murmurs, rubs, or gallops. Peripheral pulses 2+ and equal bilaterally. ABDOMINAL: Soft, nontender, nondistended, no hepatosplenomegaly. Normoactive BS. MUSCULOSKELETAL: Moves all extremities. Strength/ROM intact without gross deformities. SKIN: Warm, dry, pallor. No rashes. NEURO: A&O X3. Speech clear. Cranial nerves II-XII intact. No ataxic movements. PSYCHIATRIC: Appropriate mood and affect. Normal interaction. <Camilla Kirby APRN - Last Filed: 02/01/25 03:12> Course Course Emergency Course: Patient signed out to me pending some labs to result (dimer, UA, UDS, TSH). TSH abnormal, T3 and T4 ordered and normal thus subclinical. Otherwise work up appears to be unremarkable and has remained hemodynamically stable. Stable for DC with follow up. Mother at time of DC would like to discuss and we reviewed work up in the ED and that no acute process had been identified and the role of the ED versus outpatient. Patient's symptoms sound possibly viral though no swab had been performed. <Patricia Boles MD - Last Filed: 02/02/25 13:46> Vital Signs Vital signs: Vital Signs Temperature 98.2 F 01/31/25 20:50 Pulse Rate 78 01/31/25 20:50 Respiratory Rate 18 01/31/25 20:50 Blood Pressure 121/60 01/31/25 20:50 Pulse Oximetry 99 01/31/25 20:50 Oxygen Delivery Room Air 01/31/25 20:50 Temperature 98.2 F 01/31/25 20:50 Pulse Rate 55 L 02/01/25 06:15 Respiratory Rate 18 02/01/25 06:15 Blood Pressure 125/67 02/01/25 06:15 Pulse Oximetry 100 02/01/25 06:15 Oxygen Delivery Room Air 02/01/25 01:27 <Camilla Kirby APRN - Last Filed: 02/01/25 03:12> Vital Signs Temperature 98.2 F 01/31/25 20:50 Pulse Rate 78 01/31/25 20:50 Respiratory Rate 18 01/31/25 20:50 Blood Pressure 121/60 01/31/25 20:50 Pulse Oximetry 99 01/31/25 20:50 Oxygen Delivery Room Air 01/31/25 20:50 Temperature 98.2 F 01/31/25 20:50 Pulse Rate 55 L 02/01/25 06:15 Respiratory Rate 18 02/01/25 06:15 Blood Pressure 125/67 02/01/25 06:15 Pulse Oximetry 100 02/01/25 06:15 Oxygen Delivery Room Air 02/01/25 01:27 <Patricia Boles MD - Last Filed: 02/02/25 13:46> MDM - Chest Pain MDM Narrative Medical decision making narrative: Patient is a 24-year-old male who presents to the ER with a 1 week history of feeling ?under the weather. He endorses chest pain, abdominal pain, shortness of breath, achiness, shakiness, and dizziness. Patient reports he experienced chest pain 3 days ago but that has since subsided. His mother reports her biggest concern is his shortness of breath. Patient reports he may have had a fever one of the nights during the past week but he is unsure. He endorses a history of bradycardia, GI problems, [place] spotted fever, meningitis, and GERD. Patient denies any abdominal pain, back pain, lower extremity swelling. Labs Ordered: CBC, CMP, magnesium, troponin, BMP, D-dimer, UA, magnesium, TSH, UDS, PTT, INR, lipase Imaging Ordered: Chest x-ray Medications Ordered: 1 L normal saline IV bolus Results: Patient's chest x-ray indicates cardiomediastinal silhouette is unremarkable. The lungs are clear. No focal infiltrate or effusion. Risks: HEART score: low risk HEART Score for Major Cardiac Events from [employer] on 02/01/2025 All calculations should be rechecked by clinician prior to use RESULT SUMMARY: 1 points Low Score (0-3 points) Risk of MACE of 0.9-1.7%. INPUTS: History ?> 1 = Moderately suspicious EKG ?> 0 = Normal Age ?> 0 = <45 Risk factors ?> 0 = No known risk factors Initial troponin ?> 0 = <Normal limit 0310- Care signed out to Dr. Boles <Camilla Kirby APRN - Last Filed: 02/01/25 03:12> Differential Diagnosis Differential diagnosis: Likely atypical chest pain, st elevation myocardial infarction, costochondritis and chest pain <Camilla Kirby APRN - Last Filed: 02/01/25 03:12> Lab Data Attestation: I reviewed the patient's lab results. <Camilla Kirby APRN - Last Filed: 02/01/25 03:12> Result diagrams: 01/31/25 20:56 01/31/25 20:56 <Camilla Kirby APRN - Last Filed: 02/01/25 03:12> Labs: Lab Results 01/31/25 02/01/25 02/01/25 Range/Units 20:56 00:06 02:42 WBC 8.8 (4.5-10.0) K/mm3 RBC 5.01 (4.6-6.20) M/mm3 Hgb 15.9 (14.0-18.0) g/dL Hct 46.5 (42.0-52.0) % MCV 92.8 (80-100) fl MCH 31.7 (26-34) pg MCHC 34.2 (32-36) g/dl RDW 10.8 L (11.5-14.5) % Plt Count 230 (150-375) k/mm3 MPV 10.0 (7.4-10.4) fl Immature Gran % (Auto) 0.1 (0-0.5) % Neut % (Auto) 64.3 (45.5-73.1) % Lymph % (Auto) 27.6 (18.3-44.2) % [place] % (Auto) 6.1 (2.6-8.5) % Eos % (Auto) 1.4 (0-4.4) % Baso % (Auto) 0.5 (0.2-1.2) % Lymph # (Auto) 2.44 (0.9-3.2) K/mm3 [place] # (Auto) 0.5 (0.1-0.6) K/mm3 Eos # (Auto) 0.1 (0-0.3) K/mm3 Baso # (Auto) 0.0 (0.0-0.1) K/mm3 Abs Immat Gran (auto) 0.01 (0.00-0.031) K/mm3 Absolute Neuts (auto) 5.7 (1.3-6.7) K/mm3 Absolute Nucleated RBC 0.000 (0.0-0.012) K/mm3 Nucleated RBC % 0.0 (0.0-0.2) % PT 14.1 (11.1-14.7) Seconds INR 1.1 APTT 26.7 (22.3-36.8) Seconds D-Dimer < 0.27 (<0.48) ug/mL Sodium 138 (137-145) mmol/L Potassium 4.0 (3.4-5.0) mmol/L Chloride 99 (98-107) mmol/L Carbon Dioxide 29 (22-30) mmol/L Anion Gap 10 (4-12) mmol/L BUN 11 (9-20) mg/dL Creatinine 0.78 (0.7-1.3) mg/dL Estim Creat Clear Calc 116 ml/min Estimated GFR > 60 (59 - ) Glucose 117 H (65-110) mg/dL Calcium 9.5 (8.4-10.2) mg/dL Magnesium 2.2 (1.6-2.3) mg/dL Total Bilirubin 1.1 (0.2-1.3) mg/dL AST 32 (17-59) U/L ALT 24 (6-50) U/L Alkaline Phosphatase 44 (38-126) U/L Troponin I < 0.012 < 0.012 < 0.012 (0.000-0.034) ng/mL NT-Pro-B Natriuret Pep < 20 (19.9-100) pg/mL Total Protein 7.5 (6.3-8.2) g/dL Albumin 4.6 (3.5-5.1) g/dL Lipase 107 (23-300) U/L TSH (Reflex) 5.450 H (0.465-4.68) uIU/mL Free T4 0.92 (0.78-2.19) ng/dL Free T3 pg/mL (2.32-6.09) pg/mL Total T3 (0.82-1.58) NG/ML Urine Color (Yellow) Urine Appearance (Clear) Urine pH (5.0-9.0) Ur Specific [place] (1.001-1.035) Urine Protein (Negative) mg/dL Urine Glucose (UA) (Negative) mg/dL Urine Ketones (Negative) mg/dL Ur Blood (Man) (Negative) Urine Nitrate (Negative) Urine Bilirubin (Negative) Urine Urobilinogen (<2.0) mg/dL Leukocyte Esterase Rfl (Negative) RYAN/UL Urine Opiates Screen (Negative) Urine Methadone Screen (Negative) Ur Barbiturates Screen (Negative) Ur Phencyclidine Scrn (Negative) Ur Amphetamine Screen (Negative) U Benzodiazepines Scrn (Negative) Urine Cocaine Screen (Negative) U Cannabinoids Screen (Negative) 02/01/25 02/01/25 Range/Units 02:42 03:24 WBC (4.5-10.0) K/mm3 RBC (4.6-6.20) M/mm3 Hgb (14.0-18.0) g/dL Hct (42.0-52.0) % MCV (80-100) fl MCH (26-34) pg MCHC (32-36) g/dl RDW (11.5-14.5) % Plt Count (150-375) k/mm3 MPV (7.4-10.4) fl Immature Gran % (Auto) (0-0.5) % Neut % (Auto) (45.5-73.1) % Lymph % (Auto) (18.3-44.2) % [place] % (Auto) (2.6-8.5) % Eos % (Auto) (0-4.4) % Baso % (Auto) (0.2-1.2) % Lymph # (Auto) (0.9-3.2) K/mm3 [place] # (Auto) (0.1-0.6) K/mm3 Eos # (Auto) (0-0.3) K/mm3 Baso # (Auto) (0.0-0.1) K/mm3 Abs Immat Gran (auto) (0.00-0.031) K/mm3 Absolute Neuts (auto) (1.3-6.7) K/mm3 Absolute Nucleated RBC (0.0-0.012) K/mm3 Nucleated RBC % (0.0-0.2) % PT (11.1-14.7) Seconds INR APTT (22.3-36.8) Seconds D-Dimer (<0.48) ug/mL Sodium (137-145) mmol/L Potassium (3.4-5.0) mmol/L Chloride (98-107) mmol/L Carbon Dioxide (22-30) mmol/L Anion Gap (4-12) mmol/L BUN (9-20) mg/dL Creatinine (0.7-1.3) mg/dL Estim Creat Clear Calc ml/min Estimated GFR (59 - ) Glucose (65-110) mg/dL Calcium (8.4-10.2) mg/dL Magnesium (1.6-2.3) mg/dL Total Bilirubin (0.2-1.3) mg/dL AST (17-59) U/L ALT (6-50) U/L Alkaline Phosphatase (38-126) U/L Troponin I (0.000-0.034) ng/mL NT-Pro-B Natriuret Pep (19.9-100) pg/mL Total Protein (6.3-8.2) g/dL Albumin (3.5-5.1) g/dL Lipase (23-300) U/L TSH (Reflex) (0.465-4.68) uIU/mL Free T4 0.89 (0.78-2.19) ng/dL Free T3 pg/mL 4.27 (2.32-6.09) pg/mL Total T3 1.06 (0.82-1.58) NG/ML Urine Color Yellow (Yellow) Urine Appearance Clear (Clear) Urine pH 6.5 (5.0-9.0) Ur Specific [place] 1.020 (1.001-1.035) Urine Protein Negative (Negative) mg/dL Urine Glucose (UA) Negative (Negative) mg/dL Urine Ketones Negative (Negative) mg/dL Ur Blood (Man) Negative (Negative) Urine Nitrate Negative (Negative) Urine Bilirubin Negative (Negative) Urine Urobilinogen 0.2 (<2.0) mg/dL Leukocyte Esterase Rfl Negative (Negative) RYAN/UL Urine Opiates Screen Negative (Negative) Urine Methadone Screen Negative (Negative) Ur Barbiturates Screen Negative (Negative) Ur Phencyclidine Scrn Negative (Negative) Ur Amphetamine Screen Negative (Negative) U Benzodiazepines Scrn Negative (Negative) Urine Cocaine Screen Negative (Negative) U Cannabinoids Screen Negative (Negative) <Camillakortney Kirby, [employer] [employer] [facility] - Last Filed: 02/01/25 03:12> Lab Results 01/31/25 02/01/25 02/01/25 Range/Units 20:56 00:06 02:42 WBC 8.8 (4.5-10.0) K/mm3 RBC 5.01 (4.6-6.20) M/mm3 Hgb 15.9 (14.0-18.0) g/dL Hct 46.5 (42.0-52.0) % MCV 92.8 (80-100) fl MCH 31.7 (26-34) pg MCHC 34.2 (32-36) g/dl RDW 10.8 L (11.5-14.5) % Plt Count 230 (150-375) k/mm3 MPV 10.0 (7.4-10.4) fl Immature Gran % (Auto) 0.1 (0-0.5) % Neut % (Auto) 64.3 (45.5-73.1) % Lymph % (Auto) 27.6 (18.3-44.2) % [place] % (Auto) 6.1 (2.6-8.5) % Eos % (Auto) 1.4 (0-4.4) % Baso % (Auto) 0.5 (0.2-1.2) % Lymph # (Auto) 2.44 (0.9-3.2) K/mm3 [place] # (Auto) 0.5 (0.1-0.6) K/mm3 Eos # (Auto) 0.1 (0-0.3) K/mm3 Baso # (Auto) 0.0 (0.0-0.1) K/mm3 Abs Immat Gran (auto) 0.01 (0.00-0.031) K/mm3 Absolute Neuts (auto) 5.7 (1.3-6.7) K/mm3 Absolute Nucleated RBC 0.000 (0.0-0.012) K/mm3 Nucleated RBC % 0.0 (0.0-0.2) % PT 14.1 (11.1-14.7) Seconds INR 1.1 APTT 26.7 (22.3-36.8) Seconds D-Dimer < 0.27 (<0.48) ug/mL Sodium 138 (137-145) mmol/L Potassium 4.0 (3.4-5.0) mmol/L Chloride 99 (98-107) mmol/L Carbon Dioxide 29 (22-30) mmol/L Anion Gap 10 (4-12) mmol/L BUN 11 (9-20) mg/dL Creatinine 0.78 (0.7-1.3) mg/dL Estim Creat Clear Calc 116 ml/min Estimated GFR > 60 (59 - ) Glucose 117 H (65-110) mg/dL Calcium 9.5 (8.4-10.2) mg/dL Magnesium 2.2 (1.6-2.3) mg/dL Total Bilirubin 1.1 (0.2-1.3) mg/dL AST 32 (17-59) U/L ALT 24 (6-50) U/L Alkaline Phosphatase 44 (38-126) U/L Troponin I < 0.012 < 0.012 < 0.012 (0.000-0.034) ng/mL NT-Pro-B Natriuret Pep < 20 (19.9-100) pg/mL Total Protein 7.5 (6.3-8.2) g/dL Albumin 4.6 (3.5-5.1) g/dL Lipase 107 (23-300) U/L TSH (Reflex) 5.450 H (0.465-4.68) uIU/mL Free T4 0.92 (0.78-2.19) ng/dL Free T3 pg/mL (2.32-6.09) pg/mL Total T3 (0.82-1.58) NG/ML Urine Color (Yellow) Urine Appearance (Clear) Urine pH (5.0-9.0) Ur Specific [place] (1.001-1.035) Urine Protein (Negative) mg/dL Urine Glucose (UA) (Negative) mg/dL Urine Ketones (Negative) mg/dL Ur Blood (Man) (Negative) Urine Nitrate (Negative) Urine Bilirubin (Negative) Urine Urobilinogen (<2.0) mg/dL Leukocyte Esterase Rfl (Negative) RYAN/UL Urine Opiates Screen (Negative) Urine Methadone Screen (Negative) Ur Barbiturates Screen (Negative) Ur Phencyclidine Scrn (Negative) Ur Amphetamine Screen (Negative) U Benzodiazepines Scrn (Negative) Urine Cocaine Screen (Negative) U Cannabinoids Screen (Negative) 02/01/25 02/01/25 Range/Units 02:42 03:24 WBC (4.5-10.0) K/mm3 RBC (4.6-6.20) M/mm3 Hgb (14.0-18.0) g/dL Hct (42.0-52.0) % MCV (80-100) fl MCH (26-34) pg MCHC (32-36) g/dl RDW (11.5-14.5) % Plt Count (150-375) k/mm3 MPV (7.4-10.4) fl Immature Gran % (Auto) (0-0.5) % Neut % (Auto) (45.5-73.1) % Lymph % (Auto) (18.3-44.2) % [place] % (Auto) (2.6-8.5) % Eos % (Auto) (0-4.4) % Baso % (Auto) (0.2-1.2) % Lymph # (Auto) (0.9-3.2) K/mm3 [place] # (Auto) (0.1-0.6) K/mm3 Eos # (Auto) (0-0.3) K/mm3 Baso # (Auto) (0.0-0.1) K/mm3 Abs Immat Gran (auto) (0.00-0.031) K/mm3 Absolute Neuts (auto) (1.3-6.7) K/mm3 Absolute Nucleated RBC (0.0-0.012) K/mm3 Nucleated RBC % (0.0-0.2) % PT (11.1-14.7) Seconds INR APTT (22.3-36.8) Seconds D-Dimer (<0.48) ug/mL Sodium (137-145) mmol/L Potassium (3.4-5.0) mmol/L Chloride (98-107) mmol/L Carbon Dioxide (22-30) mmol/L Anion Gap (4-12) mmol/L BUN (9-20) mg/dL Creatinine (0.7-1.3) mg/dL Estim Creat Clear Calc ml/min Estimated GFR (59 - ) Glucose (65-110) mg/dL Calcium (8.4-10.2) mg/dL Magnesium (1.6-2.3) mg/dL Total Bilirubin (0.2-1.3) mg/dL AST (17-59) U/L ALT (6-50) U/L Alkaline Phosphatase (38-126) U/L Troponin I (0.000-0.034) ng/mL NT-Pro-B Natriuret Pep (19.9-100) pg/mL Total Protein (6.3-8.2) g/dL Albumin (3.5-5.1) g/dL Lipase (23-300) U/L TSH (Reflex) (0.465-4.68) uIU/mL Free T4 0.89 (0.78-2.19) ng/dL Free T3 pg/mL 4.27 (2.32-6.09) pg/mL Total T3 1.06 (0.82-1.58) NG/ML Urine Color Yellow (Yellow) Urine Appearance Clear (Clear) Urine pH 6.5 (5.0-9.0) Ur Specific [place] 1.020 (1.001-1.035) Urine Protein Negative (Negative) mg/dL Urine Glucose (UA) Negative (Negative) mg/dL Urine Ketones Negative (Negative) mg/dL Ur Blood (Man) Negative (Negative) Urine Nitrate Negative (Negative) Urine Bilirubin Negative (Negative) Urine Urobilinogen 0.2 (<2.0) mg/dL Leukocyte Esterase Rfl Negative (Negative) RYAN/UL Urine Opiates Screen Negative (Negative) Urine Methadone Screen Negative (Negative) Ur Barbiturates Screen Negative (Negative) Ur Phencyclidine Scrn Negative (Negative) Ur Amphetamine Screen Negative (Negative) U Benzodiazepines Scrn Negative (Negative) Urine Cocaine Screen Negative (Negative) U Cannabinoids Screen Negative (Negative) <Patricia Boles MD - Last Filed: 02/02/25 13:46> Discharge Plan Discharge Clinical Impression: Myalgia, Intermittent chest pain, Acute viral syndrome, Subclinical hypothyroidism <Camilla Kirby APRN - Last Filed: 02/01/25 03:12> Patient Disposition: Home <Camilla Kirby APRN - Last Filed: 02/01/25 03:12> Condition: Stable <Camilla Kirby APRN - Last Filed: 02/01/25 03:12> Instructions: Antibiotic Form, Chest Pain (ED), Subclinical Hypothyroidism (ED), Viral Syndrome (ED), Musculoskeletal Pain (ED) <Camilla Kirby APRN - Last Filed: 02/01/25 03:12> Additional Instructions: Your workup was very reassuring in terms of all of the tests that were drawn including numerous labs. You did have an elevated TSH which is a thyroid hormone however your T3 and T4 were normal. Follow-up with primary care physician. If you do not have 1 the name of the doctors listed below. Rest and maintain your hydration. <Camilla Kirby APRN - Last Filed: 02/01/25 03:12> Patient Language: Sinhala <Camilla Kirby APRN - Last Filed: 02/01/25 03:12> Follow-up/Referrals: PHYSICIAN NOT ON STAFF,NONSTAFF [Primary Care Provider] - Hemanth Hoyos MD [Physician] - <Camilla Kirby APRN - Last Filed: 02/01/25 03:12> Stand Alone Forms: Work/School Release IP <Camilla Kirby APRN - Last Filed: 02/01/25 03:12> Time of Disposition: 05:57 <Camilla Kirby APRN - Last Filed: 02/01/25 03:12> 05:57 <Patricia Boles MD - Last Filed: 02/02/25 13:46>
[2025-02-01] MEDS: SODIUM CHLORIDE 0.9% IV 1,000 ML 999 ML IV CONT (02:46)
[2025-02-01 03:00] LABS: Magnesium 2.2 mg/dL (1.6-2.3)
[2025-02-01 03:13] LABS: NT Pro B Type Natriuretic Pept < 20 pg/mL (19.9-100); Troponin I < 0.012 ng/mL (0.000-0.034)
[2025-02-01 03:33] LABS: Thyroid Stimulating Hormone Reflex 5.450 uIU/mL (0.465-4.68)
[2025-02-01 03:34] LABS: Add Urine Microscopic? NO
[2025-02-01 03:36] LABS: Appearance Urine Clear (Clear); Glucose Urine UA Negative (Negative); Leukocyte Esterase Ur Negative LEU/UL (Negative); Nitrate Urine Negative (Negative); Specific Grav Ur 1.020 (1.001-1.035)
[2025-02-01 03:50] LABS: Cannabinoid Screen Urine Negative (Negative)
[2025-02-01 04:25] LABS: Free T4 Free Thyroxine 0.89 ng/dL (0.78-2.19)
[2025-02-01 05:40] LABS: Free T3 4.27 pg/mL (2.32-6.09)
[2025-02-01 06:10] LABS: Free T4 Free Thyroxine Reflex 0.92 ng/dL (0.78-2.19)
[2025-02-01 17:21] LABS: Total Triiodothyronine (T3) 1.06 NG/ML (0.82-1.58)
== END 2025-02-01 06:16 | disposition home or self-care (01) ==
PROVIDERS: Registered Nurse; Emergency Provider Student in an Organized Health Care Education/Training Program
DX: K21.9 Gastro-esophageal reflux disease without esophagitis (principal)
CPT/HCPCS: 36415; 71046; 80053; 80307; 81003; 83690; 83735; 83880; 84439; 84443; 84480; 84481; 84484; 85025; 85380; 85610; 85730; 93005; 96360; 99284; J7030